=== PATIENT | male | born 1945 | race Caucasian/White ===

== ENCOUNTER 2018-06-07 23:53 | Emergency (ER) | payer MEDICARE, BC ==
[~2018-06-07 23:53] MED LIST: Lactated Ringers 1,000 ML IV SCH
[2018-06-07] MEDS ORDERED: HYDROmorphone 1 MG/ML Syringe IVPUSH ONE (23:58)
--- NOTE | 2018-06-08 00:08 | EDM.PDOC ---
ED HPI GENERAL MEDICAL PROBLEM - General Chief Complaint: Lower Extremity Injury/Pain Stated Complaint: MEDICAL [facility]IA [facility] Time Seen by Provider: 06/08/18 00:00 Source of Information: Reports: Patient, EMS, Old Records History Limitations: Reports: No Limitations - History of Present Illness INITIAL COMMENTS - FREE TEXT/NARRATIVE: 72 yo male with chronic LLE lymphedema has recently developed an accumulation of fluid to the L hip area. He had a CT scan earlier today per Dr. Montoya his primary. The plan was to deal with this 06/08 during the day as patient had been fairly asymptomatic. Tonight about bedtime he abruptly developed severe L hip area pain and took Percocet x 2 without relief. EMS transported and he was given Dilaudid 2 mg IV with partial relief. Onset: Today Onset Date: 06/07/18 Onset Time: 22:00 Duration: Hour(s):, Constant, Getting Worse Location: Reports: Pelvis (L hip area) Quality: Reports: Pressure Severity: Severe Improves with: Reports: Medication Worsens with: Reports: Other (? 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, Other (see below) Other Treatments ICE CREAM DIPPER: Dilaudid 2m IVP Left Hip Pain Score (Numeric/FACES): 10 - Related Data Allergies Allergy/AdvReac Type Severity Reaction Status Date / Time Sulfa (Sulfonamide Allergy Other Verified 06/08/18 00:01 Antibiotics) Home Meds: Home Meds Simvastatin 10 mg PO DAILY 05/28/18 [History] Triamterene/Hydrochlorothiazid [Triamterene-HCTZ 37.5-25 MG] 1 each PO DAILY 02/09 [History] tiZANidine [Zanaflex] 4 mg PO BEDTIME PRN 05/28/18 [History] Atenolol 510 mg PO DAILY 06/08/18 [History] Past Medical History - Past Surgical History Musculoskeletal Surgical History: Reports: Hip Replacement Other Musculoskeletal Surgeries/Procedures:: [id number]. hip replacement 2012 Review of Systems - Review of Systems Review Of Systems: See Below Constitutional: Reports: No Symptoms Ears: Reports: No Symptoms Nose: Reports: No Symptoms Mouth/Throat: Reports: No Symptoms Respiratory: Reports: No Symptoms Cardiovascular: Reports: No Symptoms GI/Abdominal: Reports: No Symptoms Genitourinary: Reports: No Symptoms Musculoskeletal: Reports: Joint Pain (L lateral hip area pain) Skin: Reports: No Symptoms Neurological: Reports: No Symptoms ED EXAM, GENERAL - Physical Exam Exam: See Below Exam Limited By: No Limitations General Appearance: Alert, WD/WN, No Apparent Distress, Obese Eye Exam: Bilateral Eye: Normal Inspection Ears: Normal External Exam, Normal Canal, Hearing Grossly Normal Ear Exam: Bilateral Ear: Auricle Normal, Canal Normal Nose: Normal Inspection, Normal Mucosa, No Blood Throat/Mouth: Normal Inspection, Normal Lips, Normal Oropharynx, Normal Voice, No Airway Compromise Head: Atraumatic, Normocephalic Neck: Normal Inspection Respiratory/Chest: No Respiratory Distress, Lungs Clear, Normal Breath Sounds, No Accessory Muscle Use Cardiovascular: Regular Rate, Rhythm, Tachycardia GI/Abdominal: Normal Bowel Sounds, Soft, Non-Tender, No Distention Back Exam: Normal Inspection. No: CVA Tenderness (R), CVA Tenderness (L) Extremities: Other (L lateral hip area is swollen and hard from fluid accumulation under the skin. ) Neurological: Alert, Oriented, CN II-XII Intact, Normal Cognition, No Motor/ Sensory Deficits Psychiatric: Normal Affect, Normal Mood Skin Exam: Warm, Dry, Intact, Normal Color, No Rash Lymphatic: No Adenopathy Course - Vital Signs Last Recorded V/S: Last Vital Signs Temp 36.4 C 06/07/18 23:54 Pulse 103 H 06/07/18 23:54 Resp 19 06/07/18 23:54 BP 150/83 H 06/07/18 23:54 Pulse Ox 98 06/07/18 23:54 - Orders/Labs/Meds Orders: Active Orders 24 hr Category Date Time Status UA W/MICROSCOPIC [URIN] Stat Lab 06/07/18 23:58 Ordered Lactated Ringers [Ringers, Lactated] 1,000 ml Med 06/07/18 23:45 Active IV ASDIRECTED Medication Orders Lactated Ringer's (Ringers, Lactated) 1,000 mls @ 150 mls/hr IV ASDIRECTED JERROD Last Admin: 06/08/18 00:11 Dose: 150 mls/hr Labs: Laboratory Tests 06/08/18 06/08/18 Range/Units 00:05 00:05 WBC 13.2 H (4.5-11.0) K/uL RBC 4.09 L (4.30-5.90) M/uL Hgb 11.5 L (12.0-15.0) g/dL Hct 35.8 L (40.0-54.0) % MCV 88 (80-98) fL MCH 28 (27-31) pg MCHC 32 (32-36) % Plt Count 278 (150-400) K/uL Sodium 135 L (140-148) mmol/L Potassium 4.1 (3.6-5.2) mmol/L Chloride 101 (100-108) mmol/L Carbon Dioxide 24 (21-32) mmol/L Anion Gap 14.1 H (5.0-14.0) mmol/L BUN 33 H (7-18) mg/dL Creatinine 1.6 H (0.8-1.3) mg/dL Est Cr Clr Drug Dosing TNP Estimated GFR (MDRD) 43 L (>60) Glucose 208 H (74-106) mg/dL Calcium 9.2 (8.5-10.1) mg/dL Meds: Medications Generic Name Dose Route Start Last Admin Trade Name Freq PRN Reason Stop Dose Admin Lactated Ringer's 1,000 mls @ 150 mls/hr 06/07/18 23:45 06/08/18 00:11 Ringers, Lactated IV 150 mls/hr ASDIRECTED JERROD Administration Discontinued Medications Generic Name Dose Route Start Last Admin Trade Name Freq PRN Reason Stop Dose Admin Hydromorphone HCl 1 mg 06/07/18 23:58 06/08/18 00:14 Dilaudid IVPUSH 06/07/18 23:59 1 mg ONETIME ONE Administration Departure - Departure Time of Disposition: 01:05 Disposition: DC/Tfer to Acute Hospital 02 Condition: Fair Clinical Impression: Hip pain, left - Discharge Information *PRESCRIPTION DRUG MONITORING PROGRAM REVIEWED*: Not Applicable *COPY OF PRESCRIPTION DRUG MONITORING REPORT IN PATIENT JENNIFER: Not Applicable Referrals: PCP,None [Primary Care Provider] - Forms: ED Department Discharge - My Orders Last 24 Hours: My Active Orders 06/07/18 23:45 Lactated Ringers [Ringers, Lactated] 1,000 ml IV ASDIRECTED 06/07/18 23:58 UA W/MICROSCOPIC [URIN] Stat - Assessment/Plan Last 24 Hours: My Active Orders 06/07/18 23:45 Lactated Ringers [Ringers, Lactated] 1,000 ml IV ASDIRECTED 06/07/18 23:58 UA W/MICROSCOPIC [URIN] Stat
[2018-06-08] MEDS ORDERED: HYDROmorphone 1 MG/ML Syringe IVPUSH ONE (01:09)
== END 2018-06-08 02:13 ==
LOC: JP.ED 23:53
DX: M25.552 Pain in left hip (principal); I89.0 Lymphedema, not elsewhere classified; Z88.2 Allergy status to sulfonamides; Z96.642 Presence of left artificial hip joint; R10.11 Right upper quadrant pain; K80.20 Calculus of gallbladder without cholecystitis without obstruction; K76.0 Fatty (change of) liver, not elsewhere classified
CPT/HCPCS: 36415; 74177; 80048; 85027; 96361; 96374; 99284; 99285; J1170; J7030; J7050; J7120

== ENCOUNTER 2019-02-26 09:27 | Emergency (ER) | payer MEDICARE, BC ==
--- NOTE | 2019-02-26 10:04 | EDM.PDOC ---
ED HPI GENERAL MEDICAL PROBLEM - General Chief Complaint: ENT Problem Stated Complaint: SORES INSIDE THE MONTH Time Seen by Provider: 02/26/19 09:50 Source of Information: Reports: Patient, Old Records, RN History Limitations: Reports: No Limitations - History of Present Illness INITIAL COMMENTS - FREE TEXT/NARRATIVE: 73 yo male getting regular outpatient doses of vancomycin presents with soreness to the inside of his mouth. Is worried about thrush. Has no hx of HIV, blood transfusions, IV drug use or diabetes. Has not noticed any white patches in his mouth. 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: Other (see below) (none) - Related Data Allergies Allergy/AdvReac Type Severity Reaction Status Date / Time Sulfa (Sulfonamide Allergy Other Verified 02/26/19 09:38 Antibiotics) Home Meds: Home Meds Simvastatin 10 mg PO DAILY 05/28/18 [History] Atenolol 50 mg PO DAILY 06/08/18 [History] Acetaminophen [Tylenol] 650 mg PO Q4H PRN 02/14/19 [History] Aspirin [Halfprin] 81 mg PO BID 02/14/19 [History] Aspirin/Butalbital/Caffeine [Fiorinal 50-325-40 MG] 1 cap PO Q4H PRN 02/14/19 [ History] Atenolol [Tenormin] 50 mg PO DAILY 02/14/19 [History] Esomeprazole Magnesium [Nexium] 40 mg PO DAILY 02/14/19 [History] Gluc Johnson Dipo Ch/Saul Johnson/C/Joo [Glucosamine Chondroitin Caplet] 1 each PO DAILY 02/14/19 [History] Methyl Salicylate/Menthol [Icy Hot Stick] 1 applic TP DAILY 02/14/19 [History] Sildenafil Citrate [Sildenafil] 100 mg PO ASDIRECTED 02/14/19 [History] diphenhydrAMINE [Benadryl] 25 - 50 mg PO Q6H PRN 02/14/19 [History] oxyCODONE [Oxycodone HCl] 10 mg PO Q4H PRN 02/14/19 [History] rifAMPin [Rifampin] 300 mg PO BID 02/14/19 [History] tiZANidine [Zanaflex] 4 mg PO BEDTIME 02/14/19 [History] Nystatin 500,000 unit PO QID #200 ml 02/26/19 [Rx] Past Medical History Oncologic (Cancer) History: Reports: Bone - Infectious Disease History Infectious Disease History: Reports: Chicken Pox - Past Surgical History Musculoskeletal Surgical History: Reports: Hip Replacement Other Musculoskeletal Surgeries/Procedures:: [id number]. hip replacement 2013 x 4 Social & Family History - Family History Family Medical History: Noncontributory - Tobacco Use Smoking Status *Q: Never Smoker - Caffeine Use Caffeine Use: Reports: Coffee - Recreational Drug Use Recreational Drug Use: No ED ROS ENT - Review of Systems Review Of Systems: See Below Constitutional: Reports: No Symptoms HEENT: Reports: Other (mouth and tongue sore.) Respiratory: Reports: No Symptoms Cardiovascular: Reports: No Symptoms GI/Abdominal: Reports: No Symptoms : Reports: No Symptoms Musculoskeletal: Reports: No Symptoms Skin: Reports: No Symptoms Neurological: Reports: No Symptoms ED EXAM, ENT - Physical Exam Exam: See Below Exam Limited By: No Limitations General Appearance: Alert, WD/WN, No Apparent Distress Eye Exam: Bilateral Eye: Normal Inspection Ears: Normal Canal, Hearing Grossly Normal, Normal TMs Nose: Normal Inspection, No Blood Mouth/Throat: Normal Inspection, Normal Lips, Normal Oropharynx, Normal Teeth. No: Gum Swelling, Hoarse Voice, Lip Swelling, Lip Ulcers, Muffled Voice, Oral Ulcers, Throat Swelling, Tongue Swelling, Tonsillar Erythema, Tonsillar Exudates , Tonsillar Swelling, Uvular Deviation, Uvular Edema Head: Atraumatic, Normocephalic Neck: Normal Inspection Respiratory/Chest: No Respiratory Distress, No Accessory Muscle Use Cardiovascular: Regular Rate, Rhythm Neurological: Alert, Oriented, CN II-XII Intact, Normal Cognition, No Motor/ Sensory Deficits Psychiatric: Normal Affect, Normal Mood Skin: Warm, Dry, Intact, Normal Color, No Rash Lymphatic: No Adenopathy Course - Vital Signs Last Recorded V/S: Last Vital Signs Temp 35.3 C 02/26/19 09:43 Pulse 65 02/26/19 09:43 Resp 13 05/05/19 09:43 BP 116/62 02/26/19 09:43 Pulse Ox 95 02/26/19 09:43 Departure - Departure Time of Disposition: 10:29 Disposition: Home, Self-Care 01 Condition: Good Clinical Impression: Oral mucosal disease - Discharge Information *PRESCRIPTION DRUG MONITORING PROGRAM REVIEWED*: No *COPY OF PRESCRIPTION DRUG MONITORING REPORT IN PATIENT JENNIFER: No Prescriptions: Nystatin 500,000 unit PO QID #200 ml Referrals: PCP,None [Primary Care Provider] - Forms: ED Department Discharge Additional Instructions: Use Nystatin as directed. Recheck with your doctor later this week.
== END 2019-02-26 10:40 | disposition home or self-care (01) ==
LOC: JP.ED 09:27
DX: K13.70 Unspecified lesions of oral mucosa (principal); Z88.2 Allergy status to sulfonamides; Z79.899 Other long term (current) drug therapy
CPT/HCPCS: 82962; 87220; 99282; 99283

== ENCOUNTER 2020-05-31 12:36 | Observation (INO) | payer MEDICARE, BC ==
--- NOTE | 2020-05-31 13:09 | EDM.PDOC ---
ED HPI GENERAL MEDICAL PROBLEM - General Stated Complaint: MEDICAL Time Seen by Provider: 05/31/20 12:40 Source of Information: Reports: Patient, Family History Limitations: Reports: No Limitations - History of Present Illness INITIAL COMMENTS - FREE TEXT/NARRATIVE: 74-year-old male with postoperative hemorrhaging from his left foot. He had surgery this morning, was discharged from [place] and his foot bled all the way to [place]. On arrival he had blood coming from his dressings and splint, so he came into the emergency room. It was briskly running from the dressings onto the floor as he was pushed into the room for examination. Patient was feeling okay until I took off his dressings and splint and exposed the amount of blood that was involved in the felt suddenly lightheaded and fainted. Onset: Unknown/Unsure (Apparently has been bleeding since the surgery) Location: Reports: Upper Extremity, Left Associated Symptoms: Reports: Syncope - Related Data Allergies Allergy/AdvReac Type Severity Reaction Status Date / Time Sulfa (Sulfonamide Allergy Mild Other Verified 05/31/20 13:10 Antibiotics) Home Meds: Home Meds Simvastatin 10 mg PO BEDTIME 05/28/18 [History] atenoloL [Atenolol] 50 mg PO DAILY 06/08/18 [History] Aspirin/Butalbital/Caffeine [Fiorinal 50-325-40 MG] 1 - 2 cap PO Q6HR 02/14/19 [History] Glucosamine/Chondroitin/C/Joo [Glucosamine Chondroitin Caplet] 1 each PO DAILY 02/14/19 [History] Sildenafil Citrate [Sildenafil] 100 mg PO ASDIRECTED PRN 02/14/19 [History] diphenhydrAMINE [Benadryl] 25 - 50 mg PO Q6H PRN 02/14/19 [History] tiZANidine [Zanaflex] 4 mg PO TID PRN 02/14/19 [History] Doxycycline [Vibramycin] 100 mg PO BID 05/13/20 [History] Aspirin 81 mg PO DAILY 05/31/20 [History] Diclofenac Sodium [Voltaren 1% Gel] 1 applic TOP QID PRN 05/31/20 [History] Lidocaine 2% [Xylocaine 2% Viscous] 5 ml PO ASDIRECTED PRN 05/31/20 [History] Loratadine [Claritin] 10 mg PO DAILY PRN 05/31/20 [History] Omeprazole 20 mg PO BIDAC 05/31/20 [History] Triamterene/Hydrochlorothiazid [Triamterene-HCTZ 37.5-25 MG] 1 each PO DAILY 05/31/20 [History] Past Medical History Oncologic (Cancer) History: Reports: Bone - Infectious Disease History Infectious Disease History: Reports: Chicken Pox - Past Surgical History Musculoskeletal Surgical History: Reports: Hip Replacement Other Musculoskeletal Surgeries/Procedures:: [id number]. hip replacement 2013 x 4 Social & Family History - Family History Family Medical History: Noncontributory - Caffeine Use Caffeine Use: Reports: Coffee ED ROS GENERAL - Review of Systems Review Of Systems: See Below Constitutional: Reports: Malaise. Denies: Fever, Chills HEENT: Reports: No Symptoms Respiratory: Reports: Shortness of Breath GI/Abdominal: Denies: Nausea, Vomiting Skin: Reports: Pallor Neurological: Reports: Dizziness ED EXAM, GENERAL - Physical Exam Exam: See Below Exam Limited By: No Limitations General Appearance: Alert, No Apparent Distress Eye Exam: Bilateral Eye: PERRL Head: Atraumatic Respiratory/Chest: No Respiratory Distress Cardiovascular: Regular Rate, Rhythm Extremities: Other (After the dressings were removed, the incision was examined and there is brisk bleeding through the proximal aspect of the incision behind the heel. 4 x 4's were folded compressed over the incision and re-wrapped onto the foot.) Skin Exam: Cool, Diaphoretic, Pallor Course - Vital Signs Last Recorded V/S: Last Vital Signs Temp 94.3 F L 05/31/20 15:37 Pulse 56 L 05/31/20 15:37 Resp 16 05/31/20 15:37 BP 117/42 L 05/31/20 15:37 Pulse Ox 100 05/31/20 15:37 - Orders/Labs/Meds Orders: Active Orders 24 hr Category Date Time Status PATIENT RETYPE [BBK] Routine Lab 05/31/20 13:00 Results RED BLOOD CELLS LP [BBK] Routine Lab 05/31/20 13:00 Results TYPE AND SCREEN [BBK] Routine Lab 05/31/20 13:00 Results Medication Orders Acetaminophen (Tylenol) 650 mg PO Q4H PRN PRN Reason: Pain (Mild 1-3)/fever Doxycycline Hyclate (Vibramycin) 100 mg PO BID JERROD Sodium Chloride (Normal Saline) 1,000 mls @ 125 mls/hr IV ASDIRECTED JERROD Sodium Chloride (Normal Saline) 1,000 mls @ 1,000 mls/hr IV .BOLUS ONE Stop: 05/31/20 16:26 Last Admin: 05/31/20 12:40 Dose: 1,000 mls/hr Documented by: EPI Sodium Chloride (Normal Saline) 1,000 mls @ 500 mls/hr IV ASDIRECTED JERROD Last Admin: 05/31/20 12:40 Dose: 500 mls/hr Documented by: EPI Loratadine (Claritin) 10 mg PO DAILY PRN PRN Reason: Allergies Non-Formulary Medication (Omeprazole [Omeprazole]) 20 mg PO BIDAC JERROD Non-Formulary Medication (Atenolol [Atenolol]) 50 mg PO DAILY JERROD Non-Formulary Medication (Aspirin/Butalbital/Caffeine [Fiorinal 50-325-40 Mg]) 1 - 2 cap PO Q6HR PRN PRN Reason: Headache Non-Formulary Medication (Simvastatin [Simvastatin]) 10 mg PO BEDTIME JERROD Ondansetron HCl (Zofran) 4 mg IV Q4H PRN PRN Reason: Nausea/Vomiting Oxycodone HCl (Oxycodone) 5 mg PO Q4H PRN PRN Reason: Pain (moderate 4-6) Polyethylene Glycol (Miralax) 17 gm PO DAILY PRN PRN Reason: Constipation Sodium Chloride (Saline Flush) 10 ml FLUSH ASDIRECTED PRN PRN Reason: Keep Vein Open Labs: Laboratory Tests 05/31/20 05/31/20 05/31/20 Range/Units 12:44 12:44 13:00 WBC 11.2 H (4.5-11.0) K/uL RBC 4.40 (4.30-5.90) M/uL Hgb 12.2 (12.0-15.0) g/dL Hct 38.7 L (40.0-54.0) % MCV 88 (80-98) fL MCH 28 (27-31) pg MCHC 32 (32-36) % Plt Count 277 (150-400) K/uL Neut % (Auto) 65 (36-66) % Lymph % (Auto) 24 (24-44) % [place] % (Auto) 7 H (2-6) % Eos % (Auto) 4 (2-4) % Baso % (Auto) 1 (0-1) % Sodium 140 (140-148) mmol/L Potassium 4.1 (3.6-5.2) mmol/L Chloride 108 (100-108) mmol/L Carbon Dioxide 22 (21-32) mmol/L Anion Gap 10.2 (5.0-14.0) mmol/L BUN 18 (7-18) mg/dL Creatinine 1.5 H (0.8-1.3) mg/dL Est Cr Clr Drug Dosing TNP Estimated GFR (MDRD) 46 L (>60) Glucose 158 H (74-106) mg/dL Calcium 8.8 (8.5-10.1) mg/dL Blood Type O POSITIVE Gel Antibody Screen Negative Crossmatch See Detail 05/31/20 Range/Units 13:49 WBC 15.2 H (4.5-11.0) K/uL RBC 3.77 L (4.30-5.90) M/uL Hgb 10.4 L (12.0-15.0) g/dL Hct 33.3 L (40.0-54.0) % MCV 88 (80-98) fL MCH 28 (27-31) pg MCHC 31 L (32-36) % Plt Count 198 (150-400) K/uL Neut % (Auto) 82 H (36-66) % Lymph % (Auto) 10 L (24-44) % [place] % (Auto) 5 (2-6) % Eos % (Auto) 2 (2-4) % Baso % (Auto) 0 (0-1) % Sodium (140-148) mmol/L Potassium (3.6-5.2) mmol/L Chloride (100-108) mmol/L Carbon Dioxide (21-32) mmol/L Anion Gap (5.0-14.0) mmol/L BUN (7-18) mg/dL Creatinine (0.8-1.3) mg/dL Est Cr Clr Drug Dosing Estimated GFR (MDRD) (>60) Glucose (74-106) mg/dL Calcium (8.5-10.1) mg/dL Blood Type Gel Antibody Screen Crossmatch Meds: Medications Generic Name Dose Route Start Last Admin Trade Name Freq PRN Reason Stop Dose Admin Acetaminophen 650 mg 05/31/20 15:20 Tylenol PO Q4H PRN Pain (Mild 1-3)/fever Doxycycline Hyclate 100 mg 05/31/20 21:00 Vibramycin PO BID JERROD Sodium Chloride 1,000 mls @ 125 mls/hr 05/31/20 15:20 Normal Saline IV ASDIRECTED JERROD Sodium Chloride 1,000 mls @ 1,000 mls/hr 05/31/20 15:27 05/31/20 12:40 Normal Saline IV 05/31/20 16:26 1,000 mls/hr .BOLUS ONE Administration Sodium Chloride 1,000 mls @ 500 mls/hr 05/31/20 15:30 05/31/20 12:40 Normal Saline IV 500 mls/hr ASDIRECTED JERROD Administration Loratadine 10 mg 05/31/20 15:20 Claritin PO DAILY PRN Allergies Non-Formulary Medication 20 mg 05/31/20 16:30 Omeprazole [Omeprazole] PO BIDAC JERROD Non-Formulary Medication 50 mg 06/01/20 09:00 Atenolol [Atenolol] PO DAILY JERROD Non-Formulary Medication 1 - 2 cap 05/31/20 15:20 Aspirin/Butalbital/Caffeine [Fiorinal 50-325-40 Mg] PO Q6HR PRN Headache Non-Formulary Medication 10 mg 05/31/20 21:00 Simvastatin [Simvastatin] PO BEDTIME JERROD Ondansetron HCl 4 mg 05/31/20 15:20 Zofran IV Q4H PRN Nausea/Vomiting Oxycodone HCl 5 mg 05/31/20 15:20 Oxycodone PO Q4H PRN Pain (moderate 4-6) Polyethylene Glycol 17 gm 05/31/20 15:20 Miralax PO DAILY PRN Constipation Sodium Chloride 10 ml 05/31/20 15:20 Saline Flush FLUSH ASDIRECTED PRN Keep Vein Open - Re-Assessments/Exams Free Text/Narrative Re-Assessment/Exam: 05/31/20 13:10 Shortly after removing the dressings, the patient became more vagal and fainted. His pulse slowed to 42 and he became even more pale and diaphoretic. He was moved onto the bed, EKG was done which shows sinus bradycardia but no ST changes. CBC and BMP were obtained, and 2 units of RBCs typed and crossed in preparation for possible transfusion. 05/31/20 13:21 Initial CBC showed a hemoglobin of 12.2. Patient started talking but remained very diaphoretic and pale. He continued to be hypotensive as well, so a second IV was started. Discussed his condition with Dr. Moreno, Dr. Rosas and Dr. Cardona. The redressing of the left leg seems to be holding and controlling bleeding at this time. Patient will need to be admitted for serial hemoglobins and observation and possible attention to the wound if bleeding persists or recurs. 05/31/20 13:55 After an additional 45 minutes, the patient's vagal symptoms slowly improved. No new fresh blood reach the surface of the dressings indicating the bleeding has probably stopped at this time. CBC was redrawn. 05/31/20 15:46 Hgb now 10.4. Patient admitted Departure - Departure Time of Disposition: 15:39 Disposition: Admitted As Inpatient 67 Clinical Impression: Acute blood loss anemia, Vasovagal syncope - Discharge Information Sepsis Event Note (ED) - Focused Exam Vital Signs: Vital Signs Temp Temp Pulse Resp BP Pulse Ox 05/31/20 13:55 96.3 F L 48 L 9 L 92/48 L 100 05/31/20 13:51 47 L 12 100/52 L 100 05/31/20 13:31 48 L 10 L 84/45 L 100 05/31/20 13:12 95 F L 49 L 24 H 60/34 L 100 05/31/20 13:06 46 L 11 L 102/48 L 93 L 05/31/20 13:01 42 L 14 100 05/31/20 12:38 96.3 F L 43 L 12 136/77 100 - My Orders Last 24 Hours: My Active Orders 05/31/20 13:00 PATIENT RETYPE [BBK] Routine RED BLOOD CELLS LP [BBK] Routine TYPE AND SCREEN [BBK] Routine - Assessment/Plan Last 24 Hours: My Active Orders 05/31/20 13:00 PATIENT RETYPE [BBK] Routine RED BLOOD CELLS LP [BBK] Routine TYPE AND SCREEN [BBK] Routine
[2020-05-31] MEDS ORDERED: Ondansetron 4 MG/2 ML SDV IV PRN (15:20)
[2020-05-31] MEDS ORDERED: Loratadine 10 MG Tab PO PRN (15:20)
[2020-05-31] MEDS ORDERED: Sodium Chloride 0.9% 10 ML Syringe FLUSH PRN (15:20)
[2020-05-31] MEDS ORDERED: Acetaminophen 325 MG Tab PO PRN (15:20)
[2020-05-31] MEDS ORDERED: oxyCODONE 5 MG Tab PO PRN (15:20)
[2020-05-31] MEDS ORDERED: Polyethylene Glycol 3350 Powder 17 GM Packet PO PRN (15:20)
[2020-05-31] MEDS ORDERED: Sodium Chloride 0.9% 1,000 ML IV ONE (15:27)
[2020-05-31] MEDS ORDERED: Sodium Chloride 0.9% 1,000 ML IV SCH (15:30)
--- NOTE | 2020-05-31 15:39 | PCM.HP.2 ---
H&P History of Present Illness - General Date of Service: 05/31/20 Admit Problem/Dx: Admission Diagnosis/Problem Admission Diagnosis/Problem Bleeding Source of Information: Patient, Family, Provider, RN Notes Reviewed History Limitations: Reports: No Limitations - History of Present Illness Initial Comments - Free Text/Narative: is a 74-year-old gentleman who was admitted through the emergency department observation status for monitoring of bleeding from a wound on his left foot. He has had difficulty with an infection in his left foot over the past few weeks and has been receiving IV antibiotics. He has been followed by Dr. Thompson, and of podiatry from [facility]. He was taken to surgery today for debridement because of underlying osteomyelitis. After he arrived home noted significant bleeding from the foot and was brought into the emergency department for further evaluation. After arriving he became very weak and lightheaded and did experience a syncopal episode. He had prolonged hypotension, thought to be secondary to vagal episode as well as intravascular volume depletion from bleeding. Hemoglobin on initial assessment was 12.3 and after 1 hour of hydration had dropped almost 2 g. He has been feeling somewhat better now after receiving IV fluids and has been hemodynamically stable. Will be admitted to observation status for ongoing monitoring and further bleeding and hemodynamic stability. - Related Data Allergies/Adverse Reactions: Allergies Allergy/AdvReac Type Severity Reaction Status Date / Time Sulfa (Sulfonamide Allergy Mild Other Verified 05/31/20 13:10 Antibiotics) Home Medications: Home Meds Simvastatin 10 mg PO BEDTIME 05/28/18 [History] atenoloL [Atenolol] 50 mg PO DAILY 06/08/18 [History] Aspirin/Butalbital/Caffeine [Fiorinal 50-325-40 MG] 1 - 2 cap PO Q6HR 02/14/19 [History] Glucosamine/Chondroitin/C/Joo [Glucosamine Chondroitin Caplet] 1 each PO DAILY 02/14/19 [History] Sildenafil Citrate [Sildenafil] 100 mg PO ASDIRECTED PRN 02/14/19 [History] diphenhydrAMINE [Benadryl] 25 - 50 mg PO Q6H PRN 02/14/19 [History] tiZANidine [Zanaflex] 4 mg PO TID PRN 02/14/19 [History] Doxycycline [Vibramycin] 100 mg PO BID 05/13/20 [History] Aspirin 81 mg PO DAILY 05/31/20 [History] Diclofenac Sodium [Voltaren 1% Gel] 1 applic TOP QID PRN 05/31/20 [History] Lidocaine 2% [Xylocaine 2% Viscous] 5 ml PO ASDIRECTED PRN 05/31/20 [History] Loratadine [Claritin] 10 mg PO DAILY PRN 05/31/20 [History] Omeprazole 20 mg PO BIDAC 05/31/20 [History] Triamterene/Hydrochlorothiazid [Triamterene-HCTZ 37.5-25 MG] 1 each PO DAILY 05/13 [History] Past Medical History Cardiovascular History: Reports: Hypertension Musculoskeletal History: Reports: Other (See Below) Other Musculoskeletal History: drop foot, lymphedema, infection in left heel Oncologic (Cancer) History: Reports: Bone - Infectious Disease History Infectious Disease History: Reports: Chicken Pox - Past Surgical History Musculoskeletal Surgical History: Reports: Hip Replacement Other Musculoskeletal Surgeries/Procedures:: [id number]. hip replacement 2013 x 4 Social & Family History - Family History Family Medical History: Noncontributory - Tobacco Use Smoking Status *Q: Never Smoker - Caffeine Use Caffeine Use: Reports: Coffee - Recreational Drug Use Recreational Drug Use: No H&P Review of Systems - Review of Systems: Review Of Systems: See Below General: Reports: Malaise, Weakness. Denies: Fever, Chills HEENT: Reports: No Symptoms Pulmonary: Reports: No Symptoms Cardiovascular: Reports: No Symptoms Gastrointestinal: Reports: No Symptoms Genitourinary: Reports: No Symptoms Musculoskeletal: Reports: No Symptoms Skin: Reports: No Symptoms Psychiatric: Reports: No Symptoms Neurological: Reports: No Symptoms Hematologic/Lymphatic: Reports: No Symptoms Immunologic: Reports: No Symptoms Exam - Exam Exam: See Below - Vital Signs Vital Signs: Last Vital Signs Temp 96.3 F L 05/31/20 13:55 Pulse 48 L 05/31/20 13:55 Resp 9 L 05/31/20 13:55 BP 92/48 L 05/31/20 13:55 Pulse Ox 100 05/31/20 13:55 Weight: 300 lb - Exam General: Alert, Oriented, Cooperative, Mild Distress HEENT: Conjunctiva Clear, Hearing Intact, Normal Nasal Septum, Posterior Pharynx Clear, Pupils Equal. No: Mucosa Moist & [place] Neck: Supple, Trachea Midline, +2 Carotid Pulse wo Bruit Lungs: Clear to Auscultation, Normal Respiratory Effort Cardiovascular: Regular Rate, Regular Rhythm, Normal S1, Normal S2. No: Systolic Murmur, Diastolic Murmur GI/Abdominal Exam: Soft, Non-Tender, No Organomegaly, No Distention Back Exam: Normal Inspection, Full Range of Motion Extremities: Non-Tender, No Pedal Edema Skin: Warm, Dry, Intact Neurological: Cranial Nerves Intact, Strength Equal Bilateral, Normal Speech, Normal Tone, Sensation Intact. No: Focal Deficit Neuro Extensive - Mental Status: Alert, Oriented x3, Normal Mood/Affect, Normal Cognition, Memory Intact - Patient Data Lab Results Last 24 hrs: Laboratory Results - last 24 hr 05/31/20 05/31/20 05/31/20 Range/Units 12:44 12:44 13:00 WBC 11.2 H (4.5-11.0) K/uL RBC 4.40 (4.30-5.90) M/uL Hgb 12.2 (12.0-15.0) g/dL Hct 38.7 L (40.0-54.0) % MCV 88 (80-98) fL MCH 28 (27-31) pg MCHC 32 (32-36) % Plt Count 277 (150-400) K/uL Neut % (Auto) 65 (36-66) % Lymph % (Auto) 24 (24-44) % Mason % (Auto) 7 H (2-6) % Eos % (Auto) 4 (2-4) % Baso % (Auto) 1 (0-1) % Sodium 140 (140-148) mmol/L Potassium 4.1 (3.6-5.2) mmol/L Chloride 108 (100-108) mmol/L Carbon Dioxide 22 (21-32) mmol/L Anion Gap 10.2 (5.0-14.0) mmol/L BUN 18 (7-18) mg/dL Creatinine 1.5 H (0.8-1.3) mg/dL Est Cr Clr Drug Dosing TNP Estimated GFR (MDRD) 46 L (>60) Glucose 158 H (74-106) mg/dL Calcium 8.8 (8.5-10.1) mg/dL Blood Type O POSITIVE Gel Antibody Screen Negative Crossmatch See Detail 05/31/20 Range/Units 13:49 WBC 15.2 H (4.5-11.0) K/uL RBC 3.77 L (4.30-5.90) M/uL Hgb 10.4 L (12.0-15.0) g/dL Hct 33.3 L (40.0-54.0) % MCV 88 (80-98) fL MCH 28 (27-31) pg MCHC 31 L (32-36) % Plt Count 198 (150-400) K/uL Neut % (Auto) 82 H (36-66) % Lymph % (Auto) 10 L (24-44) % Mason % (Auto) 5 (2-6) % Eos % (Auto) 2 (2-4) % Baso % (Auto) 0 (0-1) % Sodium (140-148) mmol/L Potassium (3.6-5.2) mmol/L Chloride (100-108) mmol/L Carbon Dioxide (21-32) mmol/L Anion Gap (5.0-14.0) mmol/L BUN (7-18) mg/dL Creatinine (0.8-1.3) mg/dL Est Cr Clr Drug Dosing Estimated GFR (MDRD) (>60) Glucose (74-106) mg/dL Calcium (8.5-10.1) mg/dL Blood Type Gel Antibody Screen Crossmatch Result Diagrams: 05/31/20 13:49 05/31/20 12:44 Sepsis Event Note - Evaluation Sepsis Screening Result: No Definite Risk - Focused Exam Vital Signs: Vital Signs Temp Temp Pulse Resp BP Pulse Ox 05/31/20 13:55 96.3 F L 48 L 9 L 92/48 L 100 05/31/20 13:51 47 L 12 100/52 L 100 05/31/20 13:31 48 L 10 L 84/45 L 100 05/31/20 13:12 95 F L 49 L 24 H 60/34 L 100 05/31/20 13:06 46 L 11 L 102/48 L 93 L 05/31/20 13:01 42 L 14 100 05/31/20 12:38 96.3 F L 43 L 12 136/77 100 Date Exam was Performed: 05/31/20 Time Exam was Performed: 15:30 *Q Meaningful Use (ADM) - VTE *Q VTE Pharmacological Contraindications *Q: Active Hemorrhage - VTE Risk Assess *Q Each Risk Factor Represents 1 Point: Obesity ( BMI > 25 kg/m2) Total Score 1 Point Risk Factors: 1 Each Risk Factor Represents 2 Points: Age 60 - 74 Years Total Score 2 Point Risk Factors: 2 Each Risk Factor Represents 3 Points: None Total Score 3 Point Risk Factors: 0 Each Risk Factor Represents 5 Points: None Total Score 5 Point Risk Factors: 0 Venous Thromboembolism Risk Factor Score *Q: 3 Problem List Initiated/Reviewed/Updated: Yes Orders Last 24hrs: Active Orders 24 hr Category Date Time Status Patient Status [ADT] Routine ADT 05/31/20 15:20 Active Ambulate [RC] QID Care 05/31/20 15:20 Active Cardiac Monitoring [RC] .As Directed Care 05/31/20 15:20 Active Height and Weight [RC] DAILY Care 05/31/20 15:20 Active Intake and Output [RC] QSHIFT Care 05/31/20 15:20 Active Notify Provider Consults [RC] ASDIRECTED Care 05/31/20 15:20 Active Notify Provider Vital Signs [RC] ASDIRECTED Care 05/31/20 15:20 Active Oxygen Therapy [RC] PRN Care 05/31/20 15:20 Active Peripheral IV Care [RC] . DIRECTED Care 05/31/20 15:20 Active Up With Assistance [RC] ASDIRECTED Care 05/31/20 15:20 Active Up to Chair [RC] QID Care 05/31/20 15:20 Active VTE/DVT Education [RC] Per Unit Routine Care 05/31/20 15:20 Active Vital Signs [RC] Q4H Care 05/31/20 15:20 Active Consult to Physician [CONS] Routine Cons 05/31/20 15:20 Ordered 2 Gram Sodium Diet [DIET] Diet 05/31/20 Lunch Active BASIC METABOLIC PANEL,BMP [CHEM] AM Lab 06/01/20 05:11 Ordered CBC WITH AUTO DIFF [HEME] AM Lab 06/01/20 05:11 Ordered HGB [HEMOGLOBIN] [HEME] Stat Lab 05/31/20 17:00 Ordered HGB [HEMOGLOBIN] [HEME] Stat Lab 05/31/20 23:00 Ordered PATIENT RETYPE [BBK] Routine Lab 05/31/20 13:00 Results RED BLOOD CELLS LP [BBK] Routine Lab 05/31/20 13:00 Results TYPE AND SCREEN [BBK] Routine Lab 05/31/20 13:00 Results Acetaminophen [Tylenol] Med 05/31/20 15:20 Active 650 mg PO Q4H PRN Aspirin/Butalbital/Caffeine [Fiorinal 50-325-40 MG] Med 05/31/20 15:20 Ordered 1 - 2 cap PO Q6HR PRN Doxycycline [Vibramycin] Med 05/31/20 21:00 Ordered 100 mg PO BID Loratadine [Claritin] Med 05/31/20 15:20 Ordered 10 mg PO DAILY PRN Omeprazole [Omeprazole] Med 05/31/20 16:30 Ordered 20 mg PO BIDAC Ondansetron [Zofran] Med 05/31/20 15:20 Active 4 mg IV Q4H PRN Simvastatin [Simvastatin] Med 05/31/20 21:00 Ordered 10 mg PO BEDTIME Sodium Chloride 0.9% [Normal Saline] 1,000 ml Med 05/31/20 15:27 Active IV .BOLUS Sodium Chloride 0.9% [Normal Saline] 1,000 ml Med 05/31/20 15:20 Active IV ASDIRECTED Sodium Chloride 0.9% [Normal Saline] 1,000 ml Med 05/31/20 15:30 Active IV ASDIRECTED Sodium Chloride 0.9% [Saline Flush] Med 05/31/20 15:20 Active 10 ml FLUSH ASDIRECTED PRN atenoloL [Atenolol] Med 06/01/20 09:00 Ordered 50 mg PO DAILY oxyCODONE Med 05/31/20 15:20 Active 5 mg PO Q4H PRN polyethylene glycoL 3350 [MiraLAX] Med 05/31/20 15:20 Active 17 gm PO DAILY PRN Peripheral IV Insertion Adult [OM.PC] Routine Oth 05/31/20 15:20 Ordered VTE Pharmacological Contraindications [AST] Per Unit Oth 05/31/20 15:20 Ordered Routine Resuscitation Status Routine Resus Stat 05/31/20 14:25 Ordered Medication Orders Acetaminophen (Tylenol) 650 mg PO Q4H PRN PRN Reason: Pain (Mild 1-3)/fever Doxycycline Hyclate (Vibramycin) 100 mg PO BID [facility] Sodium Chloride (Normal Saline) 1,000 mls @ 125 mls/hr IV ASDIRECTED [facility]ERROD Sodium Chloride (Normal Saline) 1,000 mls @ 1,000 mls/hr IV .BOLUS ONE Stop: 05/31/20 16:26 Sodium Chloride (Normal Saline) 1,000 mls @ 500 mls/hr IV ASDIRECTED [facility] Loratadine (Claritin) 10 mg PO DAILY PRN PRN Reason: Allergies Non-Formulary Medication (Omeprazole [Omeprazole]) 20 mg PO BIDAC JERROD Non-Formulary Medication (Atenolol [Atenolol]) 50 mg PO DAILY [facility] Non-Formulary Medication (Aspirin/Butalbital/Caffeine [Fiorinal 50-325-40 Mg]) 1 - 2 cap PO Q6HR PRN PRN Reason: Headache Non-Formulary Medication (Simvastatin [Simvastatin]) 10 mg PO BEDTIME [facility] Ondansetron HCl (Zofran) 4 mg IV Q4H PRN PRN Reason: Nausea/Vomiting Oxycodone HCl (Oxycodone) 5 mg PO Q4H PRN PRN Reason: Pain (moderate 4-6) Polyethylene Glycol (Miralax) 17 gm PO DAILY PRN PRN Reason: Constipation Sodium Chloride (Saline Flush) 10 ml FLUSH ASDIRECTED PRN PRN Reason: Keep Vein Open Assessment/Plan Comment:: ASSESSMENT AND PLAN BLEEDING FROM WOUND-status post surgical debridement of the left foot earlier this morning for chronic infection and osteomyelitis. Significant bleeding a ssociated with hypotension and drop in hemoglobin. -IV fluids -Serial hemoglobin levels -2 units of blood on hold -Surgical follow-up per Dr. Cardona -Continue outpatient antibiotic therapy MAINTENANCE ISSUES -DVT prophylaxis; hold on anticoagulation because of active bleeding -GI prophylaxis; not indicated -Shepherd catheter; not indicated -Nutrition; regular diet -Nicotine dependence; not required CODE STATUS-FULL CODE ADMISSION STATUS-this patient will be admitted to observation status, expect no more than a one night hospital stay for evaluation and management of problems as outlined above. DISPOSITION-anticipate discharge to home after the hospital stay. PRIMARY CARE PROVIDER-Dr. Montoya - Mortality Measure Prognosis:: Good
[2020-05-31] MEDS ORDERED: Non-Formulary Medication 1 Each (Omeprazole [Omeprazole] 20 MG) PO SCH (16:30)
[2020-05-31] MEDS: Sodium Chloride 0.9% 1,000 ML IV SCH (16:44)
[2020-05-31] MEDS ORDERED: ASPIRIN PO PRN (17:01)
[2020-05-31] MEDS ORDERED: BUTALBITAL PO PRN (17:01)
[2020-05-31] MEDS ORDERED: CAFFEINE PO PRN (17:01)
[2020-05-31] MEDS: Doxycycline 100 MG Cap PO SCH (20:40)
[2020-05-31] MEDS ORDERED: Non-Formulary Medication 1 Each (Simvastatin [Simvastatin] 10 MG) PO SCH (21:00)
[2020-05-31] MEDS ORDERED: Simvastatin 20 MG Tab PO SCH (21:00)
[2020-06-01] MEDS: Sodium Chloride 0.9% 1,000 ML IV SCH (00:44)
[2020-06-01] MEDS ORDERED: Sodium Chloride 0.9% 1,000 ML IV SCH (06:45)
--- NOTE | 2020-06-01 06:47 | PCM.PN ---
- General Info Date of Service: 06/01/20 Subjective Update: Mr. Orozco reports that he feels well, denies shortness of breath or chest pain. He has been hemodynamically stable since admission and afebrile. Serial hemoglobin levels have shown a progressive drop in hemoglobin, now at 8.8, was 12.2 at the time of admission. Functional Status: Reports: Tolerating Diet, Urinating - Review of Systems General: Reports: Weakness, Fatigue. Denies: Fever, Chills Pulmonary: Reports: No Symptoms Cardiovascular: Reports: No Symptoms Gastrointestinal: Reports: No Symptoms - Patient Data Vitals - Most Recent: Last Vital Signs Temp 98.3 F 06/01/20 03:36 Pulse 73 06/01/20 03:36 Resp 18 06/01/20 03:36 BP 101/58 L 06/01/20 03:36 Pulse Ox 98 06/01/20 03:36 Weight - Most Recent: 332 lb 3.786 oz I&O - Last 24 Hours: Intake & Output 05/31/20 05/31/20 06/01/20 14:59 22:59 06:59 Intake Total 1750 2032 Output Total 350 750 Balance 1400 1282 Lab Results Last 24 Hours: Laboratory Results - last 24 hr 05/31/20 05/31/20 05/31/20 Range/Units 12:44 12:44 13:00 WBC 11.2 H (4.5-11.0) K/uL RBC 4.40 (4.30-5.90) M/uL Hgb 12.2 (12.0-15.0) g/dL Hct 38.7 L (40.0-54.0) % MCV 88 (80-98) fL MCH 28 (27-31) pg MCHC 32 (32-36) % Plt Count 277 (150-400) K/uL Neut % (Auto) 65 (36-66) % Lymph % (Auto) 24 (24-44) % [place] % (Auto) 7 H (2-6) % Eos % (Auto) 4 (2-4) % Baso % (Auto) 1 (0-1) % Sodium 140 (140-148) mmol/L Potassium 4.1 (3.6-5.2) mmol/L Chloride 108 (100-108) mmol/L Carbon Dioxide 22 (21-32) mmol/L Anion Gap 10.2 (5.0-14.0) mmol/L BUN 18 (7-18) mg/dL Creatinine 1.5 H (0.8-1.3) mg/dL Est Cr Clr Drug Dosing TNP Estimated GFR (MDRD) 46 L (>60) Glucose 158 H (74-106) mg/dL Calcium 8.8 (8.5-10.1) mg/dL Blood Type O POSITIVE Gel Antibody Screen Negative Crossmatch See Detail 05/31/20 05/31/20 05/31/20 Range/Units 13:49 16:51 22:56 WBC 15.2 H (4.5-11.0) K/uL RBC 3.77 L (4.30-5.90) M/uL Hgb 10.4 L 10.4 L 9.2 L (12.0-15.0) g/dL Hct 33.3 L (40.0-54.0) % MCV 88 (80-98) fL MCH 28 (27-31) pg MCHC 31 L (32-36) % Plt Count 198 (150-400) K/uL Neut % (Auto) 82 H (36-66) % Lymph % (Auto) 10 L (24-44) % [place] % (Auto) 5 (2-6) % Eos % (Auto) 2 (2-4) % Baso % (Auto) 0 (0-1) % Sodium (140-148) mmol/L Potassium (3.6-5.2) mmol/L Chloride (100-108) mmol/L Carbon Dioxide (21-32) mmol/L Anion Gap (5.0-14.0) mmol/L BUN (7-18) mg/dL Creatinine (0.8-1.3) mg/dL Est Cr Clr Drug Dosing Estimated GFR (MDRD) (>60) Glucose (74-106) mg/dL Calcium (8.5-10.1) mg/dL Blood Type Gel Antibody Screen Crossmatch 06/01/20 06/01/20 Range/Units 05:11 05:11 WBC 7.9 (4.5-11.0) K/uL RBC 3.24 L (4.30-5.90) M/uL Hgb 8.8 L (12.0-15.0) g/dL Hct 29.0 L (40.0-54.0) % MCV 90 (80-98) fL MCH 27 (27-31) pg MCHC 30 L (32-36) % Plt Count 170 (150-400) K/uL Neut % (Auto) 70 H (36-66) % Lymph % (Auto) 21 L (24-44) % Shelby % (Auto) 7 H (2-6) % Eos % (Auto) 2 (2-4) % Baso % (Auto) 0 (0-1) % Sodium 144 (140-148) mmol/L Potassium 4.4 (3.6-5.2) mmol/L Chloride 113 H (100-108) mmol/L Carbon Dioxide 26 (21-32) mmol/L Anion Gap 9.4 (5.0-14.0) mmol/L BUN 21 H (7-18) mg/dL Creatinine 1.4 H (0.8-1.3) mg/dL Est Cr Clr Drug Dosing 60.75 Estimated GFR (MDRD) 50 L (>60) Glucose 108 H (74-106) mg/dL Calcium 8.3 L (8.5-10.1) mg/dL Blood Type Gel Antibody Screen Crossmatch Med Orders - Current: Current Medications Acetaminophen (Tylenol) 650 mg PO Q4H PRN PRN Reason: Pain (Mild 1-3)/fever Atenolol (Tenormin) 50 mg PO DAILY [facility] Doxycycline Hyclate (Vibramycin) 100 mg PO BID [facility] Last Admin: 05/31/20 20:40 Dose: 100 mg Documented by: Ertapenem 1 gm/ Sodium (Chloride) 100 mls @ 200 mls/hr IV Q24H [facility] Sodium Chloride (Normal Saline) 1,000 mls @ 75 mls/hr IV ASDIRECTED [facility] Lactobacillus Rhamnosus (Culturelle) 1 cap PO BID [facility] Loratadine (Claritin) 10 mg PO DAILY PRN PRN Reason: Allergies Ondansetron HCl (Zofran) 4 mg IV Q4H PRN PRN Reason: Nausea/Vomiting Oxycodone HCl (Oxycodone) 5 mg PO Q4H PRN PRN Reason: Pain (moderate 4-6) Pantoprazole Sodium (Protonix) 40 mg PO ACBREAKFAST [facility] Asa/Butalbital/ (Caffeine Tab (Ptom)) 1 - 2 each PO Q6H PRN PRN Reason: Headache Polyethylene Glycol (Miralax) 17 gm PO DAILY PRN PRN Reason: Constipation Simvastatin (Zocor) 10 mg PO BEDTIME [facility] Last Admin: 05/31/20 20:40 Dose: 10 mg Documented by: Sodium Chloride (Saline Flush) 10 ml FLUSH ASDIRECTED PRN PRN Reason: Keep Vein Open Discontinued Medications Sodium Chloride (Normal Saline) 1,000 mls @ 125 mls/hr IV ASDIRECTED [facility] Last Admin: 06/01/20 00:44 Dose: 125 mls/hr Documented by: Sodium Chloride (Normal Saline) 1,000 mls @ 1,000 mls/hr IV .BOLUS ONE Stop: 05/31/20 16:26 Last Admin: 05/31/20 12:40 Dose: 1,000 mls/hr Documented by: Sodium Chloride (Normal Saline) 1,000 mls @ 500 mls/hr IV ASDIRECTED [facility] Last Admin: 05/31/20 12:40 Dose: 500 mls/hr Documented by: - Exam General: Alert, Oriented, Cooperative, No Acute Distress Lungs: Clear to Auscultation, Normal Respiratory Effort, Decreased Breath Sounds Cardiovascular: Regular Rate, Regular Rhythm, No Murmurs GI/Abdominal Exam: Soft, Non-Tender, No Organomegaly, No Distention Extremities: Other (Surgical dressing in place left foot) Sepsis Event Note - Evaluation Sepsis Screening Result: No Definite Risk - Focused Exam Vital Signs: Vital Signs Temp Pulse Resp BP Pulse Ox 06/01/20 03:36 98.3 F 73 18 101/58 L 98 05/31/20 22:42 97.2 F 69 16 105/48 L 96 05/31/20 20:35 98 F 72 18 100/53 L 98 Date Exam was Performed: 06/01/20 Time Exam was Performed: 06:44 - Problem List Review Problem List Initiated/Reviewed/Updated: Yes - My Orders Last 24 Hours: My Active Orders 05/31/20 14:25 Resuscitation Status Routine 05/31/20 15:20 Acetaminophen [Tylenol] 650 mg PO Q4H PRN Loratadine [Claritin] 10 mg PO DAILY PRN Ondansetron [Zofran] 4 mg IV Q4H PRN Sodium Chloride 0.9% [Saline Flush] 10 ml FLUSH ASDIRECTED PRN oxyCODONE 5 mg PO Q4H PRN polyethylene glycoL 3350 [MiraLAX] 17 gm PO DAILY PRN 05/31/20 15:20 Patient Status [ADT] Routine Ambulate [RC] QID Cardiac Monitoring [RC] .As Directed Height and Weight [RC] DAILY Intake and Output [RC] QSHIFT Notify Provider Consults [RC] ASDIRECTED Notify Provider Vital Signs [RC] ASDIRECTED Oxygen Therapy [RC] PRN Peripheral IV Care [RC] . DIRECTED Up With Assistance [RC] ASDIRECTED Up to Chair [RC] QID VTE/DVT Education [RC] Per Unit Routine Vital Signs [RC] Q4H Consult to Physician [CONS] Routine Peripheral IV Insertion Adult [OM.PC] Routine VTE Pharmacological Contraindications [AST] Per Unit Routine 05/31/20 17:01 Patient's Own Medication [Ptom] 1 - 2 each PO Q6H PRN 05/31/20 21:00 Doxycycline [Vibramycin] 100 mg PO BID Simvastatin [Zocor] 10 mg PO BEDTIME 06/01/20 06:45 Sodium Chloride 0.9% @ 75 MLS/HR(1000ml) Sodium Chloride 0.9% [Normal Saline] 1,000 ml IV ASDIRECTED 06/01/20 07:30 Pantoprazole [ProTONIX] 40 mg PO ACBREAKFAST 06/01/20 Breakfast NPO Now [Nothing per Oral Now Diet] [DIET] 06/01/20 09:00 Ertapenem [INVanz] 1 gm Sodium Chloride 0.9% [Normal Saline] 100 ml IV Q24H Lactobacillus Rhamnosus GG [Culturelle] 1 cap PO BID atenoloL [Tenormin] 50 mg PO DAILY 06/01/20 13:00 HGB [HEMOGLOBIN] [HEME] Stat 06/01/20 21:00 HGB [HEMOGLOBIN] [HEME] Stat 06/02/20 05:00 BASIC METABOLIC PANEL,BMP [CHEM] Timed 06/02/20 05:11 HGB [HEMOGLOBIN] [HEME] AM - Plan Plan:: ASSESSMENT AND PLAN BLEEDING FROM WOUND-status post surgical debridement of the left foot earlier this morning for chronic infection and osteomyelitis. Significant bleeding associated with hypotension and drop in hemoglobin. Medically stable since admission, there has been a progressive drop in hemoglobin from 12.2-8.8 -IV fluids -Serial hemoglobin levels -2 units of blood on hold -Surgical follow-up per Dr. Cardona -Continue outpatient antibiotic therapy MAINTENANCE ISSUES -DVT prophylaxis; hold on anticoagulation because of active bleeding -GI prophylaxis; not indicated -Shepherd catheter; not indicated -Nutrition; regular diet -Nicotine dependence; not required CODE STATUS-FULL CODE ADMISSION STATUS-this patient will be admitted to observation status, expect no more than a one night hospital stay for evaluation and management of problems as outlined above. DISPOSITION-anticipate discharge to home after the hospital stay. PRIMARY CARE PROVIDER-Dr. Montoya
[2020-06-01] MEDS ORDERED: Non-Formulary Medication 1 Each (Atenolol [Atenolol] 50 MG) PO SCH (09:00)
[2020-06-01] MEDS: Lactobacillus Rhamnosus GG (Probiotic) Cap PO SCH ×2 (09:57→20:44)
[2020-06-01] MEDS: Pantoprazole 40 MG Tab.CR PO SCH (09:58)
[2020-06-01] MEDS: Atenolol 25 MG Tab PO SCH (09:59)
[2020-06-01] MEDS: Doxycycline 100 MG Cap PO SCH ×2 (10:00→20:43)
[2020-06-01] MEDS: Ertapenem 1 GM in Sodium Chloride 0.9% 100 ML IV SCH (10:01)
[2020-06-01] MEDS: Simvastatin 20 MG Tab PO SCH (12:12)
--- NOTE | 2020-06-01 17:07 | CONS ---
DATE OF SERVICE: 05/31/2020 REFERRING PHYSICIAN: CONSULTING PHYSICIAN: Waylon Cardona MD Consult from Dr. Rosas. REASON FOR CONSULTATION: A -[id number]-img male who is seen in the emergency room for bleeding from his left foot. The patient had a calcaneal resection in [place] by Dr. Moreno due to concerning for osteomyelitis. He had blood significantly through the dressings, had a syncopal episode, hypotension and has been admitted for evaluation and further management of hypotension/anemia. PAST MEDICAL HISTORY: Foot drop, lymphedema, osteomyelitis, hypertension, multiple knee and hip replacements, especially his hips at least x5. SOCIAL HISTORY: Not a smoker. FAMILY HISTORY: Noncontributory. REVIEW OF SYSTEMS: GENERAL: The patient is tired. HEENT: No symptoms. CARDIOVASCULAR: No chest pain. RESPIRATORY: No shortness of breath. GASTROINTESTINAL: No changes. GENITOURINARY: Not applicable. EXTREMITIES: No sensation in the left foot. This is chronic. Remainder of review of systems reviewed and Negative. PHYSICAL EXAMINATION: VITAL SIGNS: Stable, except for some hypertension. GENERAL: The patient is tired, but appropriate. HEENT: Pupils are equal. NECK: Supple. CARDIOVASCULAR: Regular rate and rhythm. LUNGS: Clear to auscultation bilaterally. ABDOMEN: Obese. EXTREMITIES: Mild amount of bleeding noted at the incision site. This appears to be venous in nature. The foot is warm to the touch. IMAGING DATA: I did review it. ASSESSMENT AND PLAN: Status post calcaneal resection with osteomyelitis. PLAN: The patient to be admitted to the Hospitalist Service. Serial hemoglobin checks. We have changed the dressing to a Coban 2 system with 4 layers for hemostatic control. Nurses were instructed that they may loosen this if the patient develops signs of ischemia which we did review. Surgical Services will continue to follow in a.m. Waylon Cardona MD /[id number]
[2020-06-02] MEDS ORDERED: Ferrous Sulfate 325 MG Tab PO SCH (08:00)
[2020-06-02] MEDS: Pantoprazole 40 MG Tab.CR PO SCH (08:23)
[2020-06-02] MEDS: Lactobacillus Rhamnosus GG (Probiotic) Cap PO SCH (08:24)
[2020-06-02] MEDS: Atenolol 25 MG Tab PO SCH (08:25)
--- NOTE | 2020-06-02 08:25 | PCM.DCSUM1 ---
Discharge Summary - Hospital Course Brief History: Mr. Orozco is a 74-year-old gentleman who was admitted through the emergency department observation status for management of bleeding from his left heel wound. - Discharge Data Discharge Date: 06/02/20 Discharge Disposition: Home, Self-Care 01 Condition: Fair - Referral to Home Health Primary Care Physician: PCP None - Discharge Diagnosis/Problem(s) (1) Bleeding from wound SNOMED Code(s): 079964752 ICD Code: T14.8XXA - OTHER INJURY OF UNSPECIFIED BODY REGION, INITIAL ENCOUNTER Status: Acute Current Visit: Yes (2) Acute blood loss anemia SNOMED Code(s): 148022209 ICD Code: D62 - ACUTE POSTHEMORRHAGIC ANEMIA Status: Acute Current Visit: Yes (3) Vasovagal syncope SNOMED Code(s): 513265979 ICD Code: R55 - SYNCOPE AND COLLAPSE Status: Acute Current Visit: Yes (4) Lymphedema SNOMED Code(s): 070692285 ICD Code: I89.0 - LYMPHEDEMA, NOT ELSEWHERE CLASSIFIED Status: Acute Current Visit: No - Patient Summary/Data Consults: Consultations 05/31/20 15:20 Consult to Physician [CONS] Routine Consulting Provider: Waylon Cardona Call Completed to Consulting Physician: Yes Reason for Consult: Bleeding from surgical wound Hospital Course: is a 74-year-old gentleman who was admitted through the emergency department observation status for monitoring of bleeding from a wound on his left foot. He has had difficulty with an infection in his left foot over the past few weeks and has been receiving IV antibiotics. He has been followed by Dr. Thompson, podiatry from [facility]. He was taken to surgery today for debridement because of underlying osteomyelitis. After he arrived home noted significant bleeding from the foot and was brought into the emergency department for further evaluation. After arriving he became very weak and lightheaded and did experience a syncopal episode. He had prolonged hypotension, thought to be secondary to vagal episode as well as intravascular volume depletion from bleeding. Hemoglobin on initial assessment was 12.3 and after 1 hour of hydration had dropped almost 2 g. He has been feeling somewhat better now after receiving IV fluids and has been hemodynamically stable. Will be admitted to observation status for ongoing monitoring and further bleeding and hemodynamic stability. After admission he was given IV fluids for ongoing hydration and serial hemoglobin levels were obtained. Hemoglobin eventually dropped to the low 8 range, he did not require transfusion during hospitalization. He was seen and evaluated by Dr. Cardona for surgical follow-up and the wound was redressed. He was not felt to require further surgical intervention. By the time of discharge hemoglobin was low but had remained stable over the last 24 hours with no further evidence of significant bleeding. Follow-up appointment will be scheduled with Dr. Cardona this week and a hemoglobin should be obtained at the time of follow-up appointment. He should be nonweightbearing on the left foot as much as possible. He will remain on his usual diet. - Patient Instructions Diet: Usual Diet as Tolerated Activity: As Tolerated Other/Special Instructions: Please schedule follow-up appointment with Dr. Cardona this week, hemoglobin should be obtained at the time of follow-up appointment. - Discharge Plan *PRESCRIPTION DRUG MONITORING PROGRAM REVIEWED*: Not Applicable *COPY OF PRESCRIPTION DRUG MONITORING REPORT IN PATIENT JENNIFER: Not Applicable Prescriptions/Med Rec: Ferrous Sulfate 325 mg PO BIDMEALS #60 tablet Home Medications: Home Meds Simvastatin 10 mg PO BEDTIME 05/28/18 [History] atenoloL [Atenolol] 50 mg PO DAILY 06/08/18 [History] Aspirin/Butalbital/Caffeine [Fiorinal 50-325-40 MG] 1 - 2 cap PO Q6HR 02/14/19 [History] Glucosamine/Chondroitin/C/Joo [Glucosamine Chondroitin Caplet] 1 each PO DAILY 02/14/19 [History] Sildenafil Citrate 100 mg PO ASDIRECTED PRN 02/14/19 [History] diphenhydrAMINE [Benadryl] 25 - 50 mg PO Q6H PRN 02/14/19 [History] tiZANidine [Zanaflex] 4 mg PO TID PRN 02/14/19 [History] Doxycycline [Vibramycin] 100 mg PO BID 05/13/20 [History] Aspirin 81 mg PO DAILY 05/31/20 [History] Diclofenac Sodium [Voltaren 1% Gel] 1 applic TOP QID PRN 05/31/20 [History] Lidocaine 2% [Xylocaine 2% Viscous] 5 ml PO ASDIRECTED PRN 05/31/20 [History] Loratadine [Claritin] 10 mg PO DAILY PRN 05/31/20 [History] Omeprazole 20 mg PO BIDAC 05/31/20 [History] Triamterene/Hydrochlorothiazid [Triamterene-HCTZ 37.5-25 MG] 1 each PO DAILY 05/31/20 [History] Ferrous Sulfate 325 mg PO BIDMEALS #60 tablet 06/02/20 [Rx] - Discharge Summary/Plan Comment DC Time >30 min.: No - Patient Data Vitals - Most Recent: Last Vital Signs Temp 96.8 F L 06/02/20 07:21 Pulse 58 L 06/02/20 07:21 Resp 16 06/02/20 07:21 BP 136/78 06/02/20 07:21 Pulse Ox 99 06/02/20 07:21 Weight - Most Recent: 339 lb 8.19 oz I&O - Last 24 hours: Intake & Output 06/01/20 06/02/20 06/02/20 22:59 06:59 14:59 Intake Total 240 Output Total 1025 500 Balance -785 -500 Lab Results - Last 24 hrs: Laboratory Results - last 24 hr 06/01/20 06/01/20 06/02/20 Range/Units 13:02 21:01 04:15 Hgb 8.2 L 8.3 L (12.0-15.0) g/dL Sodium 142 (140-148) mmol/L Potassium 4.2 (3.6-5.2) mmol/L Chloride 111 H (100-108) mmol/L Carbon Dioxide 27 (21-32) mmol/L Anion Gap 8.2 (5.0-14.0) mmol/L BUN 15 (7-18) mg/dL Creatinine 1.2 (0.8-1.3) mg/dL Est Cr Clr Drug Dosing 70.88 mL/min Estimated GFR (MDRD) 59 L (>60) Glucose 111 H (74-106) mg/dL Calcium 8.7 (8.5-10.1) mg/dL 06/02/20 Range/Units 04:15 Hgb 8.3 L (12.0-15.0) g/dL Sodium (140-148) mmol/L Potassium (3.6-5.2) mmol/L Chloride (100-108) mmol/L Carbon Dioxide (21-32) mmol/L Anion Gap (5.0-14.0) mmol/L BUN (7-18) mg/dL Creatinine (0.8-1.3) mg/dL Est Cr Clr Drug Dosing mL/min Estimated GFR (MDRD) (>60) Glucose (74-106) mg/dL Calcium (8.5-10.1) mg/dL Med Orders - Current: Current Medications Acetaminophen (Tylenol) 650 mg PO Q4H PRN PRN Reason: Pain (Mild 1-3)/fever Atenolol (Tenormin) 50 mg PO DAILY [facility] Last Admin: 06/01/20 09:59 Dose: Not Given Documented by: Doxycycline Hyclate (Vibramycin) 100 mg PO BID [facility] Last Admin: 06/01/20 20:43 Dose: Not Given Documented by: Ferrous Sulfate (Ferrous Sulfate) 325 mg PO BIDMEALS [facility] Ertapenem 1 gm/ Sodium (Chloride) 100 mls @ 200 mls/hr IV Q24H [facility] Last Admin: 06/01/20 10:01 Dose: 200 mls/hr Documented by: Lactobacillus Rhamnosus (Culturelle) 1 cap PO BID [facility] Last Admin: 06/01/20 20:44 Dose: 1 cap Documented by: Loratadine (Claritin) 10 mg PO DAILY PRN PRN Reason: Allergies Ondansetron HCl (Zofran) 4 mg IV Q4H PRN PRN Reason: Nausea/Vomiting Oxycodone HCl (Oxycodone) 5 mg PO Q4H PRN PRN Reason: Pain (moderate 4-6) Pantoprazole Sodium (Protonix) 40 mg PO ACBREAKFAST [facility] Last Admin: 06/01/20 09:58 Dose: Not Given Documented by: Asa/Butalbital/ (Caffeine Tab (Ptom)) 1 - 2 each PO Q6H PRN PRN Reason: Headache Polyethylene Glycol (Miralax) 17 gm PO DAILY PRN PRN Reason: Constipation Simvastatin (Zocor) 10 mg PO DAILY [facility] Last Admin: 06/01/20 12:12 Dose: Not Given Documented by: Sodium Chloride (Saline Flush) 10 ml FLUSH ASDIRECTED PRN PRN Reason: Keep Vein Open Discontinued Medications Sodium Chloride (Normal Saline) 1,000 mls @ 125 mls/hr IV ASDIRECTED [facility] Last Admin: 06/01/20 00:44 Dose: 125 mls/hr Documented by: Sodium Chloride (Normal Saline) 1,000 mls @ 1,000 mls/hr IV .BOLUS ONE Stop: 05/31/20 16:26 Last Admin: 05/31/20 12:40 Dose: 1,000 mls/hr Documented by: Sodium Chloride (Normal Saline) 1,000 mls @ 500 mls/hr IV ASDIRECTED [facility] Last Admin: 05/31/20 12:40 Dose: 500 mls/hr Documented by: Sodium Chloride (Normal Saline) 1,000 mls @ 75 mls/hr IV ASDIRECTED [facility] Simvastatin (Zocor) 10 mg PO BEDTIME [facility] Last Admin: 05/31/20 20:40 Dose: 10 mg Documented by: - Exam General: Reports: Alert, Oriented, Cooperative, No Acute Distress Lungs: Reports: Clear to Auscultation, Normal Respiratory Effort Cardiovascular: Reports: Regular Rate, Regular Rhythm, No Murmurs GI/Abdominal Exam: Soft, Non-Tender, No Organomegaly, No Distention Extremities: Other (Surgical dressing in place left lower leg and foot) *Q Meaningful Use (DIS) - VTE *Q VTE Pharmacological Contraindications *Q: Active Hemorrhage
[2020-06-02] MEDS: Doxycycline 100 MG Cap PO SCH (08:26)
[2020-06-02] MEDS: Simvastatin 20 MG Tab PO SCH (08:26)
[2020-06-02] MEDS: Ertapenem 1 GM in Sodium Chloride 0.9% 100 ML IV SCH (08:26)
--- NOTE | 2020-06-03 08:20 | PN ---
DATE OF SERVICE: 06/01/2020 SUBJECTIVE: The patient is doing well today. Hemoglobin has dropped. OBJECTIVE: VITAL SIGNS: Stable. Hypotension improved. EXTREMITIES: On inspection, the wound is not bleeding today nor has it bled significantly into the dressing through the night. ASSESSMENT AND PLAN: Status post calcaneal resection. We will repeat the same dressing today and continue to keep the patient in the hospital for hemoglobin serial lab testing. Waylon Cardona MD /[id number]
--- NOTE | 2020-06-03 08:44 | PN ---
DATE OF SERVICE: 06/02/2020 SUBJECTIVE: The patient is doing much better today. Pain is well controlled. No nausea, shortness of breath, or chest pain. OBJECTIVE: VITAL SIGNS: Stable per nursing report. EXTREMITIES: His calcaneal wound is not actively bleeding at this time. PLAN: The patient will be discharged today. Follow up with us next week. Waylon Cardona MD /[id number]
== END 2020-06-02 11:17 | disposition home or self-care (01) ==
LOC: JP.ED 12:36 → JP.MS 14:20
PROVIDERS: ADMIT Hospitalist; ATTEND Hospitalist
DX: L76.22 Postprocedural hemorrhage of skin and subcutaneous tissue following other procedure (principal); D62 Acute posthemorrhagic anemia; I10 Essential (primary) hypertension; M86.672 Other chronic osteomyelitis, left ankle and foot; L08.89 Other specified local infections of the skin and subcutaneous tissue; I95.9 Hypotension, unspecified; E86.9 Volume depletion, unspecified; D64.9 Anemia, unspecified; I89.0 Lymphedema, not elsewhere classified; Z88.2 Allergy status to sulfonamides; Z79.82 Long term (current) use of aspirin; Z79.899 Other long term (current) drug therapy; Z98.890 Other specified postprocedural states
CPT/HCPCS: 36415; 80048; 85018; 85025; 86850; 86900; 86901; 86920; 86922; 93010; 96361; 96365; 96366; 99284; A9270; G0378; J1335; J1642; J7030; J7050; 96360

== ENCOUNTER 2020-06-07 07:45 | Day surgery (SDC) | payer MEDICARE, BC ==
[~2020-06-07 07:45] MED LIST changes: +Bupivacaine 0.5% 50 ML MDV ONE; -Lactated Ringers 1,000 ML IV SCH; +Lidocaine 1% with EPINEPHrine 1:100,000 50 ML MDV ONE; +Lidocaine 2% Jelly 30 ML Tube ONE; +Midazolam 1 MG/ML 2 ML SDV ONE; +Propofol 200 MG/20 ML SDV ONE; +fentaNYL 100 MCG/2 ML SDV ONE
[2020-06-07] MEDS ORDERED: Sodium Chloride 0.9% 1,000 ML IV SCH (08:30)
[2020-06-07] MEDS ORDERED: ceFAZolin 2 GM in Premix Bag 1 BAG IV ONE (08:45)
[2020-06-07] MEDS ORDERED: Vancomycin 1 GM SDV ONE (09:03)
[2020-06-07] MEDS ORDERED: Ertapenem 1 GM in Sodium Chloride 0.9% 100 ML IV ONE (11:30)
--- NOTE | 2020-06-30 14:43 | CONS ---
DATE OF SERVICE: 06/07/2020 REFERRING PHYSICIAN: CONSULTING PHYSICIAN: Waylon Cardona MD REASON FOR CONSULTATION: Evaluation of left foot wound. HISTORY OF PRESENT ILLNESS: A 74-year-old male who underwent a calcaneal resection by Dr. Moreno in [place]. The patient was seen, developed complications related to bleeding. He was admitted to the Hospitalist Service here and the patient requires further management. The patient also experienced symptoms which he was weak, lightheaded, and a syncopal episode. He had prolonged hypotension. He was admitted and that was addressed. PAST MEDICAL HISTORY: 1. Multiple hip replacements and surgeries. 2. Hypertension. 3. Drop foot infection, left heel. SOCIAL HISTORY: He is not a smoker. FAMILY HISTORY: Noncontributory. REVIEW OF SYSTEMS: GENERAL: The patient is appropriate for his condition. HEENT: No symptoms. RESPIRATORY: No symptoms. CARDIOVASCULAR: No symptoms. GASTROINTESTINAL: No symptoms. GENITOURINARY: No symptoms. MUSCULOSKELETAL: Ongoing hip and wound issues, left foot. Recent surgical wound. PSYCHIATRIC: No symptoms. The remainder of review of systems reviewed and is negative. PHYSICAL EXAMINATION: VITAL SIGNS: Temperature 97.5, blood pressure 118/55, pulse 64, respirations 16, 99% on room air. GENERAL: The patient is resting comfortably. HEENT: Pupils are equal. NECK: Supple. LUNGS: Clear. CARDIOVASCULAR: Regular rhythm and rate. ABDOMEN: Obese. EXTREMITIES: Limited motion of both legs due to hip/knee issues. Wound is open with blood extravasating from this. IMAGING: I did review this. ASSESSMENT AND PLAN: To the operating room for wound evaluation/hematoma evacuation. We discussed risks, benefits, alternatives, and limitations including, but not limited to infection, bleeding, and chronic wounds. Requirement for further operation, the possibility of a future [id number] amputation, and other risks not listed here were explained to the patient and they wished to proceed. Waylon Cardona MD /[id number] MTDD
--- NOTE | 2020-06-30 15:03 | OR ---
DATE OF PROCEDURE: 06/07/2020 SURGEON: Waylon Cardona MD PROCEDURES: 1. Exploration, left foot with hematoma evacuation. 2. Debridement, left foot, full-thickness, muscular layer. COMPLICATIONS: None. LEAD QA ANALYST: None. ANESTHETIC: MAC/local. INDICATIONS: A 74-year-old male who had been operated on by the Podiatry Service with a large amount of blood from the wound requiring exploration to determine etiology. FINDINGS: 1. No specific location of bleeding. 2. Large hematoma which was evacuated. RISKS: Risks, benefits, alternatives, and limitations including, but not limited to infection, bleeding, and perforation were explained to patient who wished to proceed. PROCEDURE IN DETAIL: The patient was placed in supine position. The dressings were removed. The sutures were opened. The patient was noted to have a large hematoma which was evacuated. Some minimal bleeding was controlled by electrocautery. This was packed with a FloSeal-type material and then 1 inch iodoform packing. A compression dressing was used. Some tissue was debrided on the lateral and medial aspect less than 2 cm2. Of note, this was also irrigated with approximately 1 L of warm normal saline. Vancomycin beads were also placed within the wound itself and dressings were applied. Waylon Cardona MD /[id number]
== END 2020-06-07 12:00 | disposition home or self-care (01) ==
LOC: JP.SDS 07:45
PROVIDERS: ATTEND Surgery
DX: L76.32 Postprocedural hematoma of skin and subcutaneous tissue following other procedure (principal); I10 Essential (primary) hypertension; B95.7 Other staphylococcus as the cause of diseases classified elsewhere; Z98.890 Other specified postprocedural states
CPT/HCPCS: 10140; 11043; 87070; 87075; 87077; 87186; 87205; J0690; J1335; J2250; J2704; J3010; J3370; J7030; J7050; J3490

== ENCOUNTER 2020-08-19 15:48 | Emergency (ER) | payer MEDICARE, BC ==
--- NOTE | 2020-08-19 16:33 | EDM.PDOC ---
ED HPI GENERAL MEDICAL PROBLEM - General Chief Complaint: General Stated Complaint: URINARY PROBLEM Time Seen by Provider: 08/19/20 16:15 Source of Information: Reports: Patient History Limitations: Reports: No Limitations - History of Present Illness INITIAL COMMENTS - FREE TEXT/NARRATIVE: 74-year-old male who recently was hospitalized for blood loss anemia when he had significant bleeding from his left foot post procedure. Over the last several days he has noticed his urine has been dark, but has been asymptomatic. No dark stools, no bleeding from his foot, no nosebleeds and no abdominal pain. He tried to push fluids and felt it was a little better today but went into the clinic to get checked. A UA and blood work was done, he was sent over to the emergency room for "abdominal CAT scan" for a GI bleed. His hemoglobin was 9.2 and there was concern for blood loss anemia. Onset: Unknown/Unsure Duration: Other (Dark urine for the last 3 days) Associated Symptoms: Reports: No Other Symptoms Left Hip Pain Score (Numeric/FACES): 3 - Related Data Allergies Allergy/AdvReac Type Severity Reaction Status Date / Time Sulfa (Sulfonamide Allergy Mild Other Verified 07/05/20 10:55 Antibiotics) Home Meds: Home Meds Simvastatin 10 mg PO BEDTIME 05/28/18 [History] atenoloL [Atenolol] 50 mg PO DAILY 06/08/18 [History] Aspirin/Butalbital/Caffeine [Fiorinal 50-325-40 MG] 1 - 2 cap PO Q6HR 02/14/19 [History] Glucosamine/Chondroitin/C/Joo [Glucosamine Chondroitin Caplet] 1 each PO DAILY 02/14/19 [History] Sildenafil Citrate 100 mg PO ASDIRECTED PRN 02/14/19 [History] diphenhydrAMINE [Benadryl] 25 - 50 mg PO Q6H PRN 02/14/19 [History] tiZANidine [Zanaflex] 4 mg PO TID PRN 02/14/19 [History] Aspirin 81 mg PO DAILY 05/31/20 [History] Diclofenac Sodium [Voltaren 1% Gel] 1 applic TOP QID PRN 05/31/20 [History] Lidocaine 2% [Xylocaine 2% Viscous] 5 ml PO ASDIRECTED PRN 05/31/20 [History] Loratadine [Claritin] 10 mg PO DAILY PRN 05/31/20 [History] Triamterene/Hydrochlorothiazid [Triamterene-HCTZ 37.5-25 MG] 1 each PO DAILY 05/31/20 [History] Ferrous Sulfate 325 mg PO BIDMEALS #60 tablet 06/02/20 [Rx] Omeprazole Magnesium [Prilosec] 10 mg PO DAILY 06/07/20 [History] Past Medical History HEENT History: Reports: Impaired Vision, Other (See Below) Other HEENT History: 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 Cardiovascular History: Reports: Hypertension Gastrointestinal History: Reports: GERD Musculoskeletal History: Reports: Other (See Below) Other Musculoskeletal History: drop foot, lymphedema, infection in left heel Neurological History: Reports: Concussion Endocrine/Metabolic History: Reports: Obesity/BMI 30+ Oncologic (Cancer) History: Reports: Hodgkin's Lymphoma Dermatologic History: Reports: Other (See Below) Other Dermatologic History: Left heel exploration - Infectious Disease History Infectious Disease History: Reports: Chicken Pox, Measles, Mumps - Past Surgical History HEENT Surgical History: Reports: Tonsillectomy Cardiovascular Surgical History: Reports: None Endocrine Surgical History: Reports: None Musculoskeletal Surgical History: Reports: Hip Replacement Other Musculoskeletal Surgeries/Procedures:: [id number]. hip replacement 2013 x 4 Oncologic Surgical History: Reports: None Social & Family History - Family History Family Medical History: Noncontributory - Tobacco Use Tobacco Use Status *Q: Never Tobacco User - Caffeine Use Caffeine Use: Reports: Coffee, Tea - Recreational Drug Use Recreational Drug Use: No ED ROS GENERAL - Review of Systems Review Of Systems: See Below Constitutional: Denies: Fever, Chills, Malaise Respiratory: Denies: Shortness of Breath Cardiovascular: Denies: Chest Pain GI/Abdominal: Denies: Abdominal Pain, Nausea, Vomiting Skin: Reports: No Symptoms. Denies: Bruising Neurological: Reports: No Symptoms ED EXAM, GENERAL - Physical Exam Exam: See Below Exam Limited By: No Limitations General Appearance: Alert, No Apparent Distress Eye Exam: Bilateral Eye: Normal Inspection (Except with mild paleness of the conjunctiva) Head: Atraumatic Respiratory/Chest: No Respiratory Distress, Lungs Clear Cardiovascular: Regular Rate, Rhythm. No: Tachycardia GI/Abdominal: Soft, Non-Tender Extremities: Other (Left lower leg is completely bandaged and Aaron wrapping, no blood in the dressings) Neurological: Alert, Oriented Course - Vital Signs Last Recorded V/S: Last Vital Signs Temp 99.1 F 08/19/20 16:07 Pulse 85 08/19/20 16:07 Resp 16 08/19/20 16:07 BP 144/50 H 08/19/20 16:07 Pulse Ox - Re-Assessments/Exams Free Text/Narrative Re-Assessment/Exam: 08/19/20 16:46 Reviewed all the labs from the clinic. His hemoglobin is low but not significantly different than when he was discharged 2 months ago after his bleed. He admits he is not taking his iron pills because he does not like them. He has had no bleeding, his BUN is normal, his creatinine and kidney function are relatively stable other than possible mild dehydration. He has no blood white cells or bacteria in his urine, no bilirubin. I encouraged the patient to stay hydrated, there is no need for any further evaluation of the GI bleed. Especially in light of a normal BUN, no abdominal pain, no dark stools or hematemesis. Patient is going to try to restart his iron and recheck a hemoglobin in the next 3 or 4 days. Departure - Departure Time of Disposition: 16:43 Disposition: Home, Self-Care 01 Clinical Impression: Blood loss anemia, Dehydration, mild - Discharge Information Instructions: Dehydration, Adult, [id number] Referrals: Leo Montoya MD [Primary Care Provider] - Forms: ED Department Discharge Care Plan Goals: Concentrate on staying hydrated with plenty of water, and you should be replacing your iron with either iron rich foods or supplements. I would recommend rechecking your hemoglobin on Wednesday, or return sooner if worsening such as fever, shortness of breath or obvious bleeding. Sepsis Event Note (ED) - Evaluation Sepsis Screening Result: No Definite Risk - Focused Exam Vital Signs: Vital Signs Temp Pulse Resp BP 08/19/20 16:07 99.1 F 85 16 144/50 H 08/19/20 16:01 99.1 F 85 16 144/50 H
== END 2020-08-19 16:43 | disposition home or self-care (01) ==
LOC: JP.ED 15:48
DX: D50.0 Iron deficiency anemia secondary to blood loss (chronic) (principal); E86.0 Dehydration; I10 Essential (primary) hypertension; K21.9 Gastro-esophageal reflux disease without esophagitis; E66.9 Obesity, unspecified; Z88.2 Allergy status to sulfonamides; Z79.899 Other long term (current) drug therapy; Z79.82 Long term (current) use of aspirin; Z68.34 Body mass index [BMI] 34.0-34.9, adult
CPT/HCPCS: 99283

== ENCOUNTER 2020-08-31 02:50 | Emergency (ER) | payer MEDICARE, BC ==
[2020-08-31] MEDS ORDERED: Lactated Ringers 1,000 ML IV SCH (03:30)
[2020-08-31] MEDS ORDERED: Piperacillin/Tazobactam 4.5 GM in Sodium Chloride 0.9% 100 ML IV SCH (03:30)
--- NOTE | 2020-08-31 03:36 | EDM.PDOC ---
ED HPI GENERAL MEDICAL PROBLEM - General Chief Complaint: Skin Complaint Stated Complaint: MEDICAL VIA NORTH Time Seen by Provider: 08/31/20 03:18 Source of Information: Reports: Patient, Family, RN Notes Reviewed History Limitations: Reports: No Limitations - History of Present Illness INITIAL COMMENTS - FREE TEXT/NARRATIVE: 74-year-old gentleman presents emergency department today with large abscess of fluctuance on his left hip he awoke this morning to drainage redness and warmth over the left hip he is scheduled for below-knee amputation due to osteomyelitis of the left heel he recently had his preop done on of this last week - Related Data Allergies Allergy/AdvReac Type Severity Reaction Status Date / Time Sulfa (Sulfonamide Allergy Mild Other Verified 08/31/20 02:52 Antibiotics) Home Meds: Home Meds Simvastatin 10 mg PO BEDTIME 05/28/18 [History] atenoloL [Atenolol] 50 mg PO DAILY 06/08/18 [History] Aspirin/Butalbital/Caffeine [Fiorinal 50-325-40 MG] 1 - 2 cap PO Q6HR 02/14/19 [History] Glucosamine/Chondroitin/C/Joo [Glucosamine Chondroitin Caplet] 1 each PO DAILY 02/14/19 [History] Sildenafil Citrate 100 mg PO ASDIRECTED PRN 02/14/19 [History] diphenhydrAMINE [Benadryl] 25 - 50 mg PO Q6H PRN 02/14/19 [History] tiZANidine [Zanaflex] 4 mg PO TID PRN 02/14/19 [History] Aspirin 81 mg PO DAILY 05/31/20 [History] Triamterene/Hydrochlorothiazid [Triamterene-HCTZ 37.5-25 MG] 1 each PO DAILY 05/31/20 [History] Ferrous Sulfate 325 mg PO BIDMEALS #60 tablet 06/02/20 [Rx] Omeprazole Magnesium [Prilosec] 20 mg PO DAILY 06/07/20 [History] Doxycycline Hyclate 100 mg PO BID 08/31/20 [History] Past Medical History HEENT History: Reports: Impaired Vision, Other (See Below) Other HEENT History: 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 Gastrointestinal History: Reports: GERD Musculoskeletal History: Reports: Osteoarthritis, Other (See Below) Other Musculoskeletal History: drop foot, lymphedema, infection in left heel Neurological History: Reports: Concussion, Migraines Psychiatric History: Reports: Depression Endocrine/Metabolic History: Reports: Obesity/BMI 30+ Hematologic History: Reports: Anemia, Iron Deficiency Oncologic (Cancer) History: Reports: Hodgkin's Lymphoma Dermatologic History: Reports: Other (See Below) Other Dermatologic History: Left heel exploration - Infectious Disease History Infectious Disease History: Reports: Chicken Pox, Mumps - Past Surgical History HEENT Surgical History: Reports: Tonsillectomy Cardiovascular Surgical History: Reports: None GI Surgical History: Reports: Colonoscopy Neurological Surgical History: Reports: Spinal Fusion, Other (See Below) Other Neurological Surgeries/Procedures: spinal fusin L3-L4-L5 Musculoskeletal Surgical History: Reports: Hip Replacement Other Musculoskeletal Surgeries/Procedures:: hip replacement 2013 x 5 Oncologic Surgical History: Reports: None Social & Family History - Family History Family Medical History: Noncontributory - Tobacco Use Tobacco Use Status *Q: Former Tobacco User Used Tobacco, but Quit: Yes Month/Year Tobacco Last Used: 1975 - Caffeine Use Caffeine Use: Reports: Coffee - Recreational Drug Use Recreational Drug Use: No ED ROS GENERAL - Review of Systems Review Of Systems: See Below Constitutional: Reports: No Symptoms HEENT: Reports: No Symptoms Respiratory: Reports: No Symptoms Cardiovascular: Reports: No Symptoms GI/Abdominal: Reports: No Symptoms Musculoskeletal: Reports: Leg Pain Skin: Reports: Pallor, Rash, Wound, Change in Color ED EXAM, SKIN/RASH Exam: See Below Text/Narrative:: Examination of left leg he does have a large erythematous area over the surgical scar for his hip replacement he does have thick purulent drainage along with serosanguineous drainage coming from an open wound he also has a chronic wound of the heel on the left side and severe lymphedema as well, it is warm to the touch it is tender to the touch Exam Limited By: No Limitations General Appearance: Alert, WD/WN, No Apparent Distress Respiratory/Chest: No Respiratory Distress, Lungs Clear, Normal Breath Sounds, No Accessory Muscle Use, Chest Non-Tender Cardiovascular: Regular Rate, Rhythm, No Murmur Course - Vital Signs Last Recorded V/S: Last Vital Signs Temp 95.7 F L 08/31/20 02:55 Pulse 70 08/31/20 06:30 Resp 16 08/31/20 06:30 BP 132/61 08/31/20 06:30 Pulse Ox 99 08/31/20 06:30 - Orders/Labs/Meds Orders: Active Orders 24 hr Category Date Time Status Vital Signs [RC] Q1H Care 08/31/20 03:30 Active CULTURE BLOOD [BC] Urgent Lab 08/31/20 03:45 Received CULTURE BLOOD [BC] Urgent Lab 08/31/20 04:00 Received Lactated Ringers [Ringers, Lactated] 1,000 ml Med 08/31/20 03:30 Active IV ASDIRECTED Piperacillin/Tazobactam [Zosyn] 4.5 gm Med 08/31/20 03:30 Active Sodium Chloride 0.9% [Normal Saline] 100 ml IV Q6H Vancomycin 1 gm Med 08/31/20 04:00 Active Sodium Chloride 0.9% [Normal Saline] 250 ml IV Q12H Blood Culture x2 Reflex Set [OM.PC] Urgent Oth 08/31/20 03:30 Ordered Medication Orders Lactated Ringer's (Ringers, Lactated) 1,000 mls @ 999 mls/hr IV ASDIRECTED [facility] Last Admin: 08/31/20 04:00 Dose: 999 mls/hr Documented by: KEYONNA Vancomycin HCl 1 gm/ Sodium (Chloride) 250 mls @ 150 mls/hr IV Q12H [facility] Last Admin: 08/31/20 05:05 Dose: 150 mls/hr Documented by: Admin: 08/31/20 05:05 Dose: 150 mls/hr Documented by: KEYONNA Piperacillin Sod/Tazobactam (Sod 4.5 gm/ Sodium Chloride) 100 mls @ 100 mls/hr IV Q6H [facility] Last Admin: 08/31/20 04:00 Dose: 100 mls/hr Documented by: KEYONNA Labs: Laboratory Tests 08/31/20 08/31/20 08/31/20 Range/Units 03:45 03:45 03:45 WBC 12.0 H (4.5-11.0) K/uL RBC 4.30 (4.30-5.90) M/uL Hgb 9.7 L (12.0-15.0) g/dL Hct 33.5 L (40.0-54.0) % MCV 78 L (80-98) fL MCH 23 L (27-31) pg MCHC 29 L (32-36) % Plt Count 515 H (150-400) K/uL Neut % (Auto) 83 H (36-66) % Lymph % (Auto) 9 L (24-44) % [place] % (Auto) 6 (2-6) % Eos % (Auto) 1 L (2-4) % Baso % (Auto) 0 (0-1) % Sodium 133 L (140-148) mmol/L Potassium 4.0 (3.6-5.2) mmol/L Chloride 99 L (100-108) mmol/L Carbon Dioxide 27 (21-32) mmol/L Anion Gap 11.0 (5.0-14.0) mmol/L BUN 12 (7-18) mg/dL Creatinine 1.3 (0.8-1.3) mg/dL Est Cr Clr Drug Dosing 65.43 mL/min Estimated GFR (MDRD) 54 L (>60) Glucose 122 H (74-106) mg/dL Lactic Acid 1.3 (0.4-2.0) mmol/L Calcium 9.0 (8.5-10.1) mg/dL Total Bilirubin 0.5 (0.2-1.0) mg/dL AST 35 (15-37) U/L ALT 30 (12-78) U/L Alkaline Phosphatase 179 H (46-116) U/L C-Reactive Protein 16.41 H (0.0-0.3) mg/dL Total Protein 7.0 (6.4-8.2) g/dL Albumin 1.9 L (3.4-5.0) g/dL Globulin 5.1 H (2.3-3.5) g/dL Albumin/Globulin Ratio 0.4 L (1.2-2.2) Procalcitonin ng/mL 08/31/20 Range/Units 03:45 WBC (4.5-11.0) K/uL RBC (4.30-5.90) M/uL Hgb (12.0-15.0) g/dL Hct (40.0-54.0) % MCV (80-98) fL MCH (27-31) pg MCHC (32-36) % Plt Count (150-400) K/uL Neut % (Auto) (36-66) % Lymph % (Auto) (24-44) % Bleck[place] % (Auto) (2-6) % Eos % (Auto) (2-4) % Baso % (Auto) (0-1) % Sodium (140-148) mmol/L Potassium (3.6-5.2) mmol/L Chloride (100-108) mmol/L Carbon Dioxide (21-32) mmol/L Anion Gap (5.0-14.0) mmol/L BUN (7-18) mg/dL Creatinine (0.8-1.3) mg/dL Est Cr Clr Drug Dosing mL/min Estimated GFR (MDRD) (>60) Glucose (74-106) mg/dL Lactic Acid (0.4-2.0) mmol/L Calcium (8.5-10.1) mg/dL Total Bilirubin (0.2-1.0) mg/dL AST (15-37) U/L ALT (12-78) U/L Alkaline Phosphatase (46-116) U/L C-Reactive Protein (0.0-0.3) mg/dL Total Protein (6.4-8.2) g/dL Albumin (3.4-5.0) g/dL Globulin (2.3-3.5) g/dL Albumin/Globulin Ratio (1.2-2.2) Procalcitonin 0.17 ng/mL Meds: Medications Generic Name Dose Route Start Last Admin Trade Name Freq PRN Reason Stop Dose Admin Lactated Ringer's 1,000 mls @ 999 mls/hr 08/31/20 03:30 08/31/20 04:00 Ringers, Lactated IV 999 mls/hr ASDIRECTED JERROD Administration Vancomycin HCl 1 gm/ Sodium 250 mls @ 150 mls/hr 08/31/20 04:00 08/31/20 05:05 Chloride IV 150 mls/hr Q12H JERROD Administration Piperacillin Sod/Tazobactam 100 mls @ 100 mls/hr 08/31/20 03:30 08/31/20 04:00 Sod 4.5 gm/ Sodium Chloride IV 100 mls/hr Q6H JERROD Administration Departure - Departure Time of Disposition: 06:55 Disposition: DC/Tfer to Acute Hospital 02 Condition: Poor Clinical Impression: Osteomyelitis of left hip - Discharge Information Referrals: Leo Montoya MD [Primary Care Provider] - Forms: ED Department Discharge Sepsis Event Note (ED) - Evaluation Sepsis Screening Result: No Definite Risk - Focused Exam Vital Signs: Vital Signs Temp Pulse Resp BP Pulse Ox 08/31/20 06:30 70 16 132/61 99 08/31/20 05:30 71 16 115/53 L 100 08/31/20 04:30 67 16 106/54 L 98 08/31/20 03:30 75 16 122/59 L 99 08/31/20 03:09 69 16 117/54 L 99 08/31/20 02:55 95.7 F L 71 16 120/53 L 99 - My Orders Last 24 Hours: My Active Orders 08/31/20 03:30 Vital Signs [RC] Q1H Lactated Ringers [Ringers, Lactated] 1,000 ml IV ASDIRECTED Piperacillin/Tazobactam [Zosyn] 4.5 gm Sodium Chloride 0.9% [Normal Saline] 1 00 ml IV Q6H Blood Culture x2 Reflex Set [OM.PC] Urgent 08/31/20 03:45 CULTURE BLOOD [BC] Urgent 08/31/20 04:00 CULTURE BLOOD [BC] Urgent Vancomycin 1 gm Sodium Chloride 0.9% [Normal Saline] 250 ml IV Q12H - Assessment/Plan Last 24 Hours: My Active Orders 08/31/20 03:30 Vital Signs [RC] Q1H Lactated Ringers [Ringers, Lactated] 1,000 ml IV ASDIRECTED Piperacillin/Tazobactam [Zosyn] 4.5 gm Sodium Chloride 0.9% [Normal Saline] 100 ml IV Q6H Blood Culture x2 Reflex Set [OM.PC] Urgent 08/31/20 03:45 CULTURE BLOOD [BC] Urgent 08/31/20 04:00 CULTURE BLOOD [BC] Urgent Vancomycin 1 gm Sodium Chloride 0.9% [Normal Saline] 250 ml IV Q12H Plan: Assessment Acuity = acute Site and laterality = left hip osteomyelitis with sepsis local cellulitis Etiology = unknown suspicious for seeding from chronic osteomyelitis in the left heel Manifestations = none Location of injury = Home Lab values = WBC elevated 12.0 consistent with leukocytosis, hemoglobin low at 9.7 consistent with microchromic anemia sodium low at 133 consistent hyponatremia lactic acid normal 1.3 CRP elevated 16.41 procalcitonin slightly elevated 0.17 x-ray does confirm osteomyelitis Plan Call discussed case with Dr. Velez hospitalist [facility] at [phone] he can accept the patient in transport will continue the antibiotics of Zosyn and vancomycin until bed is available in transport can be arranged they felt it would be this morning This note was dictated using [employer] voice recognition software please call with any questions on syntax or grammar.
--- NOTE | 2020-08-31 05:00 | CRLCR ---
Indication: Pain Technique: One view Comparison: Left hip 07/26/2018 Findings: Status post left total hip replacement without dislocation. However, there is some fragmentation and ossification at the proximal left femur with abundant subcutaneous air and soft tissue swelling suspicious for osteomyelitis/infection. Vascular stent noted medially. Dictated by Familia Leyva MD @ Aug 31 2020 4:52AM Signed by Dr. Familia Leyva @ Aug 31 2020 4:59AM
== END 2020-08-31 08:39 ==
LOC: JP.ED 02:50
DX: M86.9 Osteomyelitis, unspecified (principal); I10 Essential (primary) hypertension; K21.9 Gastro-esophageal reflux disease without esophagitis; E66.9 Obesity, unspecified; Z79.82 Long term (current) use of aspirin; Z88.2 Allergy status to sulfonamides; Z79.899 Other long term (current) drug therapy; Z87.891 Personal history of nicotine dependence; Z68.33 Body mass index [BMI] 33.0-33.9, adult
CPT/HCPCS: 36415; 73501; 80053; 83605; 84145; 85025; 86140; 87040; 96365; 96366; 96367; 99285; J2543; J3370; J7050; J7120; 87077

== ENCOUNTER 2021-01-23 17:27 | Emergency (ER) | payer MEDICARE, BC ==
--- NOTE | 2021-01-23 17:54 | EDM.PDOC ---
ED HPI GENERAL MEDICAL PROBLEM - General Chief Complaint: Genitourinary Problem Stated Complaint: MEDICAL VIA [facility]TH Time Seen by Provider: 01/23/21 17:43 Source of Information: Reports: Patient, EMS History Limitations: Reports: No Limitations - History of Present Illness INITIAL COMMENTS - FREE TEXT/NARRATIVE: Roque is a 75-year-old male presenting to the ED for evaluation of a plugged Shepherd catheter. Catheter was initially placed in September 2020 after he had an amputation of his left lower extremity at the hip. He has been having ongoing issues the abdomen. He reports that the Shepherd catheter stopped functioning earlier today. Nursing tried to flush it without success. He denies any fever or chills. He has very limited mobility and is unable to ambulate by himself. - Related Data Allergies Allergy/AdvReac Type Severity Reaction Status Date / Time Sulfa (Sulfonamide Allergy Mild Other Verified 08/31/20 02:52 Antibiotics) Home Meds: Home Meds Simvastatin 10 mg PO BEDTIME 05/28/18 [History] atenoloL [Atenolol] 50 mg PO DAILY 06/08/18 [History] Aspirin/Butalbital/Caffeine [Fiorinal 50-325-40 MG] 1 - 2 cap PO Q6HR 02/14/19 [History] Glucosamine/Chondroitin/C/Joo [Glucosamine Chondroitin Caplet] 1 each PO DAILY 02/14/19 [History] Sildenafil Citrate 100 mg PO ASDIRECTED PRN 02/14/19 [History] diphenhydrAMINE [Benadryl] 25 - 50 mg PO Q6H PRN 02/14/19 [History] tiZANidine [Zanaflex] 4 mg PO TID PRN 02/14/19 [History] Aspirin 81 mg PO DAILY 05/31/20 [History] Triamterene/Hydrochlorothiazid [Triamterene-HCTZ 37.5-25 MG] 1 each PO DAILY 05/31/20 [History] Ferrous Sulfate 325 mg PO BIDMEALS #60 tablet 06/02/20 [Rx] Omeprazole Magnesium [Prilosec] 20 mg PO DAILY 06/07/20 [History] Doxycycline Hyclate 100 mg PO BID 08/31/20 [History] Past Medical History HEENT History: Reports: Impaired Vision, Other (See Below) Other HEENT History: 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 Gastrointestinal History: Reports: GERD Musculoskeletal History: Reports: Osteoarthritis, Other (See Below) Other Musculoskeletal History: drop foot, lymphedema, infection in left heel Neurological History: Reports: Concussion, Migraines Psychiatric History: Reports: Depression Endocrine/Metabolic History: Reports: Obesity/BMI 30+ Hematologic History: Reports: Anemia, Iron Deficiency Oncologic (Cancer) History: Reports: Hodgkin's Lymphoma Dermatologic History: Reports: Other (See Below) Other Dermatologic History: Left heel exploration - Infectious Disease History Infectious Disease History: Reports: Chicken Pox, Mumps - Past Surgical History HEENT Surgical History: Reports: Tonsillectomy Cardiovascular Surgical History: Reports: None GI Surgical History: Reports: Colonoscopy Neurological Surgical History: Reports: Spinal Fusion, Other (See Below) Other Neurological Surgeries/Procedures: spinal fusin L3-L4-L5 Musculoskeletal Surgical History: Reports: Hip Replacement Other Musculoskeletal Surgeries/Procedures:: hip replacement 2013 x 5 Oncologic Surgical History: Reports: None Social & Family History - Family History Family Medical History: No Pertinent Family History - Caffeine Use Caffeine Use: Reports: Coffee ED ROS GENERAL - Review of Systems Review Of Systems: See Below Constitutional: Reports: No Symptoms GI/Abdominal: Reports: No Symptoms : Reports: Pain (Pelvic pain), Urinary Retention (Shepherd catheter is no longer functioning since this morning.) Musculoskeletal: Reports: Other (Surgically absent left lower extremity from the hip down) ED EXAM, RENAL/ - Physical Exam Exam: See Below Exam Limited By: No Limitations General Appearance: Alert, Mild Distress Respiratory/Chest: No Respiratory Distress, Lungs Clear, Normal Breath Sounds Cardiovascular: Normal Peripheral Pulses, Regular Rate, Rhythm, No Murmur GI/Abdominal: Normal Bowel Sounds, Soft, Tender (Suprapubic) (Male) Exam: Circumcised, Other (New Shepherd catheter was placed with guy hematuria, some sediment, and clots. The previous Shepherd was removed it was under pressure and the patient urinated all over the bed. This however did relieve the pelvic pressure and pain.) Course - Vital Signs Last Recorded V/S: Last Vital Signs Temp 36.7 C 01/23/21 17:44 Pulse 77 01/23/21 17:44 Resp 16 01/23/21 17:44 BP 131/79 01/23/21 17:44 Pulse Ox 97 01/23/21 17:44 - Orders/Labs/Meds Orders: Active Orders 24 hr Category Date Time Status Bladder Scan [RC] ASDIRECTED Care 01/23/21 17:31 Active - Re-Assessments/Exams Free Text/Narrative Re-Assessment/Exam: 01/23/21 17:55 a new Shepherd catheter was placed and is functioning properly now. There was initially some hematuria, clots, and sediment which is now clearing up. Since the Shepherd was replaced now the issue is how we can get Roque home. The patient has marked limited mobility with only one leg and is deconditioned to the point where even pivoting is difficult for him. His says that there is no way that she can get him out of his truck if she drives him home. Departure - Departure Time of Disposition: 18:10 Disposition: Home, Self-Care 01 Clinical Impression: Encounter for Shepherd catheter replacement - Discharge Information *PRESCRIPTION DRUG MONITORING PROGRAM REVIEWED*: Not Applicable *COPY OF PRESCRIPTION DRUG MONITORING REPORT IN PATIENT JENNIFER: Not Applicable Instructions: Indwelling Urinary Catheter Care, Adult Referrals: Leo Montoya MD [Primary Care Provider] - Sepsis Event Note (ED) - Focused Exam Vital Signs: Vital Signs Temp Pulse Resp BP Pulse Ox 01/23/21 17:44 36.7 C 77 16 131/79 97
[2021-01-23] MEDS ORDERED: Tolterodine 2 MG Tab PO ONE (18:53)
== END 2021-01-23 19:09 | disposition home or self-care (01) ==
LOC: JP.ED 17:27
DX: Z46.6 Encounter for fitting and adjustment of urinary device (principal); I10 Essential (primary) hypertension; M19.90 Unspecified osteoarthritis, unspecified site; E66.9 Obesity, unspecified; Z68.23 Body mass index [BMI] 23.0-23.9, adult; Z88.2 Allergy status to sulfonamides; Z79.82 Long term (current) use of aspirin; Z79.899 Other long term (current) drug therapy
CPT/HCPCS: 51702; 99282; 99284; A9270-GY

== ENCOUNTER 2021-04-11 16:38 | Emergency (ER) | payer MEDICARE, BC ==
--- NOTE | 2021-04-11 18:07 | EDM.PDOC ---
ED HPI GENERAL MEDICAL PROBLEM - General Chief Complaint: Wound Recheck Stated Complaint: WOUND VAC Time Seen by Provider: 04/11/21 17:45 Source of Information: Reports: Patient, Family - History of Present Illness INITIAL COMMENTS - FREE TEXT/NARRATIVE: Roque is a 75 year old male whom present to ER for evaluation of VAC dressing leak. Roque and have attempted to problem solve VAC dressing no keeping adequate suction 125mmHg today. Roque and called [employer] and found that the VAC machine is working. Roque and attempted to re-secure dressing surrounding wound but suction could not be resolved. Roque reports VAC dressing was placed yesterday and was functioning well over the first 12 hours. - Related Data Allergies Allergy/AdvReac Type Severity Reaction Status Date / Time Sulfa (Sulfonamide Allergy Mild Other Verified 04/11/21 17:32 Antibiotics) Home Meds: Home Meds Simvastatin 10 mg PO BEDTIME 05/28/18 [History] atenoloL [Atenolol] 25 mg PO DAILY 06/08/18 [History] Aspirin/Butalbital/Caffeine [Fiorinal 50-325-40 MG] 1 - 2 cap PO Q6HR 02/14/19 [History] Sildenafil Citrate 100 mg PO ASDIRECTED PRN 02/14/19 [History] diphenhydrAMINE [Benadryl] 25 - 50 mg PO Q6H PRN 02/14/19 [History] Omeprazole Magnesium [Prilosec] 20 mg PO DAILY 06/07/20 [History] Warfarin [Coumadin] 7.5 mg PO ASDIRECTED 01/23/21 [History] Past Medical History HEENT History: Reports: Impaired Vision, Other (See Below) Other HEENT History: 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 Gastrointestinal History: Reports: GERD Genitourinary History: Reports: Other (See Below) Other Genitourinary History: catheter in place Musculoskeletal History: Reports: Osteoarthritis, Other (See Below) Other Musculoskeletal History: drop foot, lymphedema, infection in left heel Neurological History: Reports: Concussion, Migraines Psychiatric History: Reports: Depression Endocrine/Metabolic History: Reports: Obesity/BMI 30+ Hematologic History: Reports: Anemia, Anticoagulation Therapy, Blood Transfusion(s), Iron Deficiency Oncologic (Cancer) History: Reports: Hodgkin's Lymphoma Dermatologic History: Reports: Other (See Below) Other Dermatologic History: Left heel exploration - Infectious Disease History Infectious Disease History: Reports: Chicken Pox, Mumps - Past Surgical History Head Surgeries/Procedures: Reports: None HEENT Surgical History: Reports: Tonsillectomy Cardiovascular Surgical History: Reports: None GI Surgical History: Reports: Colonoscopy Endocrine Surgical History: Reports: None Neurological Surgical History: Reports: Spinal Fusion, Other (See Below) Other Neurological Surgeries/Procedures: spinal fusin L3-L4-L5 Musculoskeletal Surgical History: Reports: Hip Replacement Other Musculoskeletal Surgeries/Procedures:: hip replacement 2013 x 5 Oncologic Surgical History: Reports: None Social & Family History - Family History Family Medical History: No Pertinent Family History - Tobacco Use Tobacco Use Status *Q: Never Tobacco User - Caffeine Use Caffeine Use: Reports: Coffee ED ROS GENERAL - Review of Systems Review Of Systems: Comprehensive ROS is negative, except as noted in HPI. ED EXAM, SKIN/RASH Exam: See Below Exam Limited By: No Limitations General Appearance: Alert, WD/WN, No Apparent Distress Eye Exam: Bilateral Eye: EOMI, Normal Inspection Ears: Hearing Grossly Normal Nose: Normal Inspection Throat/Mouth: Normal Voice, No Airway Compromise Neck: Normal Inspection Respiratory/Chest: No Respiratory Distress, Normal Breath Sounds Cardiovascular: Normal Peripheral Pulses Extremities: Other (Complete amputation of left lower leg with non healing wound requiring VAC dressing placement to promote healing. ) Skin: Warm, Dry, Intact, Normal Color Location, Skin: Pelvis (open wound x 2 left pelvis small wound more medial and inferior measures 1 cm x 1.5 cm with less than 0.5cm depth. Larger wound measures 3cm x 5cm depth full thickness with visualization of internal fasciial layer with undermined margins. ), Genital (VAC dressing adhesive ends in periscrotal area ) Lymphatic: No Adenopathy ED WOUND PROCEDURES - Laceration/Wound Repair Left Perineal Laceration/Wound Length In cm: 5 (open wound x 2 left pelvis small wound more medial and inferior measures 1 cm x 1.5 cm with less than 0.5cm depth. Larger wound measures 3cm x 5cm depth full thickness with visualization of internal fasciial layer with undermined margins. ) Appearance: Other (Chronic non healing wound ) Progress/Comments: No sealing VAC dressing removed after location of leak found. VAC sponge, adhesive, tubing and canister were replaced (supplies provided by patient). VAC dressing was secured and VAC machine was able to produce correct amount of suction 125mmHg indicating good dressing and adhesive seal. Course - Vital Signs Last Recorded V/S: Last Vital Signs Temp 36.6 C 04/11/21 17:37 Pulse 61 04/11/21 17:37 Resp 18 04/11/21 17:37 BP 154/70 H 04/11/21 17:37 Pulse Ox 100 04/11/21 17:37 Departure - Departure Time of Disposition: 18:04 Disposition: Home, Self-Care 01 Clinical Impression: Open wound, Renewing dressing - Discharge Information Referrals: Waylon Cardona MD [Physician] - Forms: ED Department Discharge Additional Instructions: Go to clinic on Wednesday for VAC dressing assessment and dressing change. Return to ER over the weekend if vac dressing on maintaining 125mmHg suction per wound care recommendations. Sepsis Event Note (ED) - Evaluation Sepsis Screening Result: No Definite Risk - Focused Exam Vital Signs: Vital Signs Temp Pulse Resp BP Pulse Ox 04/11/21 17:37 36.6 C 61 18 154/70 H 100 04/11/21 17:06 36.6 C 61 18 154/70 H 100
== END 2021-04-11 18:20 | disposition home or self-care (01) ==
LOC: JP.ED 16:38
DX: S31.000A Unspecified open wound of lower back and pelvis without penetration into retroperitoneum, initial encounter (principal); E78.00 Pure hypercholesterolemia, unspecified; I10 Essential (primary) hypertension; K21.9 Gastro-esophageal reflux disease without esophagitis; M19.90 Unspecified osteoarthritis, unspecified site; E66.9 Obesity, unspecified; Z68.24 Body mass index [BMI] 24.0-24.9, adult; Z79.82 Long term (current) use of aspirin; Z88.2 Allergy status to sulfonamides; Z79.899 Other long term (current) drug therapy; X58.XXXA Exposure to other specified factors, initial encounter
CPT/HCPCS: 99282

== ENCOUNTER 2021-05-20 13:25 | Emergency (ER) | payer MEDICARE, BC ==
--- NOTE | 2021-05-20 14:24 | EDM.PDOC ---
<Jayla Collier - Last Filed: 05/20/21 18:36> ED HPI GENERAL MEDICAL PROBLEM - General Chief Complaint: General Stated Complaint: MEDICAL [facility]IA [facility] Time Seen by Provider: 05/20/21 14:00 Source of Information: Reports: Patient History Limitations: Reports: Altered Mental Status - History of Present Illness INITIAL COMMENTS - FREE TEXT/NARRATIVE: 75 year old male with history of left lower extremity amputation, osteomyelitis, and skin cancer arrives with complaints of increased confusion and weakness. Per EMS, they were called for a lift assist today x 3 so was brought in due to weakness and falls. Patients states that he has had migraines for 40 years, and just recently began having increased headaches. Started Imitrex 1 week ago and since then has had confusion, weakness, and has not been acting like himself. He has poor recent memory and does not answer questions appropriately. He recently had a wound vac to his left hip due to chronic wound from left lower extremity amputation, wound vac was discontinues but still receives daily dressing changes. Wound assessed today and it does not appear obviously infected. He denies fever, nausea, vomiting, diarrhea, cough, chest pain, shortness of breath or focal neuro deficits. His also states that he has a skin cancer on his head that he is supposed to be having a pre op for this afternoon, surgery is planned for Wednesday. Unable to state type of cancer. Onset: Gradual Onset Date: 05/13/21 Duration: Getting Worse, Other (weakness and confusion) Location: Reports: Other (generalized) Quality: Reports: Other Improves with: Reports: None Worsens with: Reports: None Context: Reports: Other (1 week of confusion, weakness, not acting like himself) Associated Symptoms: Reports: Confusion, Weakness - Related Data Allergies Allergy/AdvReac Type Severity Reaction Status Date / Time Sulfa (Sulfonamide Allergy Mild Other Verified 05/20/21 13:27 Antibiotics) Home Meds: Home Meds Simvastatin 10 mg PO BEDTIME 05/28/18 [History] atenoloL [Atenolol] 50 mg PO DAILY 06/08/18 [History] Aspirin/Butalbital/Caffeine [Fiorinal 50-325-40 MG] 1 - 2 cap PO Q6HR PRN 02/14/19 [History] Sildenafil Citrate 100 mg PO ASDIRECTED PRN 02/14/19 [History] diphenhydrAMINE [Benadryl] 25 - 50 mg PO Q6H PRN 02/14/19 [History] Omeprazole Magnesium [Prilosec] 20 mg PO DAILY 06/07/20 [History] Acetaminophen [Acetaminophen Extra Strength] 1,000 mg PO Q6H PRN 05/19/21 [History] Aspirin [Adult Low Dose Aspirin EC] 81 mg PO DAILY 05/19/21 [History] Diclofenac Sodium [Voltaren 1% Gel] 1 applic TOP QID 05/19/21 [History] Glucosam/Chond/Collagen/Hyalur [Glucosamine Chondroitin] 1 tab PO DAILY 05/19/21 [History] Loperamide [Imodium AD] 2 mg PO QID PRN 05/19/21 [History] Multivitamin with Minerals [Multiple Vitamin] 1 tab PO DAILY 05/19/21 [History] Nystatin 100,000 gm TOP DAILY 05/19/21 [History] Pantoprazole [ProTONIX] 40 mg PO DAILY 05/19/21 [History] SUMAtriptan [Imitrex] 50 mg PO ASDIRECTED PRN 05/19/21 [History] Sennosides/Docusate Sodium [Sennosides-Docusate Sodium] 2 tab PO BID PRN 05/19/21 [History] Triamterene/Hydrochlorothiazid [Triamterene-HCTZ 37.5-25 MG] 1 tab PO DAILY 05/19/21 [History] Warfarin [Coumadin] 10 mg PO SUMOTUTHFRSA 05/19/21 [History] Warfarin [Coumadin] 15 mg PO WE 05/19/21 [History] atorvaSTATin [Lipitor] 20 mg PO BEDTIME 05/19/21 [History] diphenhydrAMINE HCL [Diphenhydramine HCl] 25 mg PO ASDIRECTED PRN 05/19/21 [History] tiZANidine [Zanaflex] 4 mg PO BEDTIME 05/19/21 [History] Past Medical History HEENT History: Reports: Impaired Vision, Other (See Below) Other HEENT History: 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 Gastrointestinal History: Reports: GERD Genitourinary History: Reports: Other (See Below) Other Genitourinary History: catheter in place Musculoskeletal History: Reports: Osteoarthritis, Other (See Below) Other Musculoskeletal History: drop foot, lymphedema, infection in left heel Neurological History: Reports: Concussion, Migraines Psychiatric History: Reports: Depression Endocrine/Metabolic History: Reports: Obesity/BMI 30+ Hematologic History: Reports: Anemia, Anticoagulation Therapy, Blood Transfusion(s), Iron Deficiency Oncologic (Cancer) History: Reports: Hodgkin's Lymphoma Dermatologic History: Reports: Other (See Below) Other Dermatologic History: Left heel exploration - Infectious Disease History Infectious Disease History: Reports: Chicken Pox, Mumps - Past Surgical History Head Surgeries/Procedures: Reports: None HEENT Surgical History: Reports: Tonsillectomy Cardiovascular Surgical History: Reports: None GI Surgical History: Reports: Colonoscopy Endocrine Surgical History: Reports: None Neurological Surgical History: Reports: Spinal Fusion, Other (See Below) Other Neurological Surgeries/Procedures: spinal fusin L3-L4-L5 Musculoskeletal Surgical History: Reports: Hip Replacement Other Musculoskeletal Surgeries/Procedures:: hip replacement 2013 x 5 Oncologic Surgical History: Reports: None Social & Family History - Family History Family Medical History: No Pertinent Family History - Tobacco Use Tobacco Use Status *Q: Never Tobacco User - Caffeine Use Caffeine Use: Reports: Coffee ED ROS GENERAL - Review of Systems Review Of Systems: See Below Constitutional: Reports: Weakness. Denies: Fever, Chills, Night Sweats, Decreased Appetite, Weight Gain HEENT: Reports: No Symptoms Respiratory: Reports: No Symptoms. Denies: Shortness of Breath, Wheezing, Pleuritic Chest Pain, Cough Cardiovascular: Reports: No Symptoms. Denies: Chest Pain, Blood Pressure Problem, Edema, Palpitations, Syncope Endocrine: Reports: No Symptoms. Denies: Fatigue GI/Abdominal: Reports: No Symptoms. Denies: Abdominal Pain, Diarrhea, Nausea, Vomiting : Reports: No Symptoms. Denies: Dysuria, Flank Pain, Hematuria Musculoskeletal: Reports: No Symptoms Skin: Reports: Wound (Has chronic wound to left groin area post left lower extremity amputation. Followed by wound care. Does not appear infected.). Denies: Diaphoresis, Rash, Erythema Neurological: Reports: Confusion, Headache, Difficulty Walking, Weakness Psychiatric: Reports: No Symptoms Hematologic/Lymphatic: Reports: No Symptoms Immunologic: Reports: No Symptoms ED EXAM, GENERAL - Physical Exam Exam: See Below Free Text/Narrative:: Roque is resting on the cart with his at the bedside. He is disoriented and is slow to respond to conversation. He is not able to follow conversations or piece together what we are talking to him about. His pupils are PEARRL and tracking WNL. Chair Inspector strength is equal bilaterally, weak. he does not have a drift or gaze deficit. No obvious facial droop or facial slurring. He has poor recall of recent and distant memory. Respirations are regular and non labored. skin is warm and dry. He is alert and oriented to person and place but does not seem to understand the situation. Abdomen is non tender and non distended. LLE amputation wound is clean and dry, dressing in place. Good strength to right lower extremity. Able to lift leg from bed. He is able to follow simple directions. Has a bandage on his head covering a "skin cancer" that he is suppose to have removed on Wednesday. Exam Limited By: Altered Mental Status General Appearance: Alert, No Apparent Distress, Other (confused, disoriented, forgetful) Ears: Normal External Exam Nose: Normal Inspection, No Blood Throat/Mouth: Normal Inspection, Normal Teeth, No Airway Compromise. No: Dysphagia, Inflammation Head: Atraumatic Neck: Normal Inspection, Supple, Non-Tender, Full Range of Motion Respiratory/Chest: No Respiratory Distress, Lungs Clear, Normal Breath Sounds, No Accessory Muscle Use, Chest Non-Tender. No: Respiratory Distress, Decreased Breath Sounds, Crackles, Wheezing, Retractions, Splinting Cardiovascular: Normal Peripheral Pulses, Regular Rate, Rhythm, No Edema. No: Tachycardia GI/Abdominal: Normal Bowel Sounds, Soft, Non-Tender, No Distention. No: Distended, Guarding, Rigid, Tender, Abnormal Bowel Sounds (Male) Exam: Deferred Rectal (Males) Exam: Deferred Back Exam: Normal Inspection, Full Range of Motion Extremities: Normal Inspection, Normal Range of Motion, Non-Tender, No Pedal Edema, Normal Capillary Refill Neurological: Alert, Inattentive, Confused, Disoriented, Slow to Respond, Memory Loss Remote Events, Memory Loss Recent Events, Abnormal Gait Psychiatric: Normal Affect Skin Exam: Warm, Dry, Intact, Normal Color, Wound/Incision (Has chronic wound to left groin area post left lower extremity amputation. Followed by wound care. Does not appear infected.). No: Diaphoretic, Rash Course - Vital Signs Text/Narrative:: CBC, CMP, CRP, Head CT ordered. Waiting for results at this time. agrees with plan of care at this time. - Re-Assessments/Exams Free Text/Narrative Re-Assessment/Exam: 05/20/21 16:27 Patient and updated of patients CT head results- Large subdural requiring neuro surgical intervention and transfer to [facility]. Patient agrees with plan of care, neuro status remains unchanged. Departure - Departure Time of Disposition: 18:00 Disposition: DC/Tfer to Other 70 Clinical Impression: Subacute subdural hematoma, Confusion, Generalized weakness, Frequent headaches - Discharge Information Referrals: PCP,None [Primary Care Provider] - Forms: ED Department Discharge Care Plan Goals: Patient will be transferred by ALS to [facility] for admission for further evaluation, stabilization, and ultimately surgery for his subacute subdural hematoma. Stable on discharge. Sepsis Event Note (ED) - Evaluation Sepsis Screening Result: No Definite Risk <Chaim Hummel - Last Filed: 05/20/21 18:59> Course - Vital Signs Last Recorded V/S: Last Vital Signs Temp 97.8 F 05/20/21 13:30 Pulse 63 05/20/21 15:47 Resp 16 05/20/21 13:30 BP 129/63 05/20/21 15:47 Pulse Ox 98 05/20/21 15:47 - Orders/Labs/Meds Labs: Laboratory Tests 05/20/21 05/20/21 05/20/21 Range/Units 14:20 14:20 14:52 WBC 9.7 (4.5-11.0) K/uL RBC 4.68 (4.30-5.90) M/uL Hgb 10.4 L (12.0-15.0) g/dL Hct 35.6 L (40.0-54.0) % MCV 76 L (80-98) fL MCH 22 L (27-31) pg MCHC 29 L (32-36) % Plt Count 317 (150-400) K/uL Neut % (Auto) 80.1 H (36-66) % Lymph % (Auto) 10.9 L (24-44) % [place] % (Auto) 6.6 H (2-6) % Eos % (Auto) 2.0 (2-4) % Baso % (Auto) 0.4 (0-1) % PT 12.3 H (9.5-12.0) sec INR 1.13 (0.80-1.20) Sodium 144 (140-148) mmol/L Potassium 4.1 (3.6-5.2) mmol/L Chloride 108 (100-108) mmol/L Carbon Dioxide 27 (21-32) mmol/L Anion Gap 8.7 (5.0-14.0) mmol/L BUN 19 H D (7-18) mg/dL Creatinine 1.4 H (0.8-1.3) mg/dL Est Cr Clr Drug Dosing 59.85 mL/min Estimated GFR (MDRD) 50 L (>60) Glucose 118 H (74-106) mg/dL Calcium 9.1 (8.5-10.1) mg/dL Total Bilirubin 0.3 (0.2-1.0) mg/dL AST 17 (15-37) U/L ALT 22 (12-78) U/L Alkaline Phosphatase 209 H (46-116) U/L C-Reactive Protein 5.05 H (0.0-0.3) mg/dL Total Protein 7.2 (6.4-8.2) g/dL Albumin 2.5 L (3.4-5.0) g/dL Globulin 4.7 H (2.3-3.5) g/dL Albumin/Globulin Ratio 0.5 L (1.2-2.2) - Re-Assessments/Exams Free Text/Narrative Re-Assessment/Exam: 05/20/21 17:37 Impression: Large subacute left convexity subdural hematoma with marked effacement of the left cerebral hemisphere and extensive left right midline shift of 1.8 centimeters. There is mild uncal herniation and effacement of the left suprasellar cistern. Findings were discussed with student Jayla Collier at 2:56 p.m. May 20, 2021 Above findings were discussed with the patient, his , and neurosurgery in [place]. Pro time is 1.13. Dr. Conde, hospitalist in [place] accepted transfer the patient. Sepsis Event Note (ED) - Focused Exam Vital Signs: Vital Signs Temp Pulse Resp BP Pulse Ox 05/20/21 15:47 63 129/63 98 05/20/21 13:30 97.8 F 75 16 132/69 98 Attestation - Student - Attestation Statement Attestation Statement: I personally performed or re-performed the physical examination and medical decision making. I have verified all student documentation or findings, including history, physical exam and/or medical decision making.
--- NOTE | 2021-05-20 15:01 | CRLCT ---
For Patients: As a result of the Century Cures Act, medical imaging exams and procedure reports are released immediately into your electronic medical record. You may view this report before your referring provider. If you have questions, please contact your health care provider. Indication: Confusion Technique: Volumetric multidetector CT images of the head were obtained without the administration of low osmolar intravenous contrast. Comparison: None available Findings: There is a left convexity likely subacute subdural hematoma measuring 2.3 centimeters. There is marked mass effect on the left cerebral hemisphere with 1.8 centimeters of left to right midline shift. There is moderate left uncal herniation with partial effacement of the suprasellar cistern. There is no evidence of cerebellar tonsillar herniation. There is likely cortical atrophic changes of the brain. There is chronic small vessel disease change seen within the subcortical and periventricular white matter otherwise the brain parenchyma is preserved in attenuation and simpson-white differentiation. The orbits and their contents are grossly within normal limits. There is questionable mild frontal subgaleal soft tissue hematoma otherwise the underlying bony calvarium is grossly intact. The paranasal sinuses are clear. The mastoid air cells are well aerated. Impression: Large subacute left convexity subdural hematoma with marked effacement of the left cerebral hemisphere and extensive left right midline shift of 1.8 centimeters. There is mild uncal herniation and effacement of the left suprasellar cistern. Findings were discussed with student Jayla Collier at 2:56 p.m. May 20, [address] Please note that all CT scans at this facility use dose modulation, iterative reconstruction, and/or weight-based dosing when appropriate to reduce radiation dose to as low as reasonably achievable. Dictated by Filippo Gilman MD @ 05/20/2021 3:00:[address] Filippo Gilman @ May 20 2021 3:00PM
== END 2021-05-20 18:00 | disposition other institution (70) ==
LOC: JP.ED 13:25
DX: S06.5X9A Traumatic subdural hemorrhage with loss of consciousness of unspecified duration, initial encounter (principal); R41.0 Disorientation, unspecified; R53.1 Weakness; E78.00 Pure hypercholesterolemia, unspecified; I10 Essential (primary) hypertension; K21.9 Gastro-esophageal reflux disease without esophagitis; M19.90 Unspecified osteoarthritis, unspecified site; E66.9 Obesity, unspecified; Z68.24 Body mass index [BMI] 24.0-24.9, adult; Z79.01 Long term (current) use of anticoagulants; Z88.2 Allergy status to sulfonamides; Z79.82 Long term (current) use of aspirin; Z79.899 Other long term (current) drug therapy; W19.XXXA Unspecified fall, initial encounter
CPT/HCPCS: 36415; 70450; 80053; 85025; 85610; 86140; 99285-25

== ENCOUNTER 2022-05-19 08:36 | Day surgery (SDC) | payer MEDICARE, BC ==
[~2022-05-19 08:36] MED LIST changes: -Bupivacaine 0.5% 50 ML MDV ONE; -Lidocaine 1% with EPINEPHrine 1:100,000 50 ML MDV ONE; -Lidocaine 2% Jelly 30 ML Tube ONE
[2022-05-19] MEDS ORDERED: Dextrose 5%-Lactated Ringers 1,000 ML IV SCH (09:00)
[2022-05-19] MEDS ORDERED: Acetaminophen 500 MG Tab PO ONE (09:00)
[2022-05-19] MEDS ORDERED: ceFAZolin 2 GM in Premix Bag 1 BAG IV ONE (10:15)
[2022-05-19] MEDS ORDERED: Bacitracin Oint 1 GM U/D Packet ONE (10:57)
[2022-05-19] MEDS ORDERED: Bupivacaine 0.5% 30 ML SDV ONE (10:57)
[2022-05-19] MEDS ORDERED: Lidocaine 1% with EPINEPHrine 1:100,000 50 ML MDV ONE (10:57)
[2022-05-19] MEDS ORDERED: Propofol 200 MG/20 ML SDV ONE (11:52)
[2022-05-19] MEDS ORDERED: Mupirocin Oint 22 GM Tube TOP ONE (11:56)
[2022-05-19] MEDS ORDERED: Acetaminophen 500 MG Tab PO PRN (13:00)
[2022-05-19] MEDS ORDERED: HYDROmorphone 1 MG/ML Syringe IVPUSH ONE (13:43)
== END 2022-05-19 15:38 | disposition home or self-care (01) ==
LOC: JP.SDS 08:36
PROVIDERS: ATTEND Surgery
DX: C44.42 Squamous cell carcinoma of skin of scalp and neck (principal); G47.33 Obstructive sleep apnea (adult) (pediatric); I10 Essential (primary) hypertension; K21.9 Gastro-esophageal reflux disease without esophagitis; G62.9 Polyneuropathy, unspecified; Z88.2 Allergy status to sulfonamides
CPT/HCPCS: 11623; 12032; A9270; J0690; J1170; J2250; J2704; J3010; J3490; J7121; 88305

== ENCOUNTER 2024-04-30 06:02 | Emergency (ER) | payer MEDICARE, BC | END 2024-04-30 08:00 | disposition home or self-care (01) | LOC: JP.ED 06:02 | DX: S80.811A Abrasion, right lower leg, initial encounter (principal); L03.115 Cellulitis of right lower limb; I10 Essential (primary) hypertension; K21.9 Gastro-esophageal reflux disease without esophagitis; E78.00 Pure hypercholesterolemia, unspecified; Z88.2 Allergy status to sulfonamides; Z79.899 Other long term (current) drug therapy; Z87.891 Personal history of nicotine dependence; W22.8XXA Striking against or struck by other objects, initial encounter | CPT/HCPCS: 99283 ==